=== PATIENT | male | born 1945 | race Caucasian/White ===

== ENCOUNTER → 2016-10-01 | Outpatient (CLI) | payer MEDICARE ==
[2014-06-07 11:15] VITALS: BP 140/66
[~2016-10-01] MED LIST: ALPR1TAB6 PO; IOHEXOL 240 MG/ML 50ML VIAL. PO ONE; IOHEXOL 300 MG/ML 75 ML VIAL IV ONE; METF100010 PO; PIOG30TA41 PO
[2016-10-01 10:53] LABS: CREATININE 0.8 mg/dL (0.7-1.3)
--- NOTE | 2016-10-01 17:41 | RAD ---
CT chest, abdomen and pelvis 10/01/2016 Indication: Hemoptysis and concern for mass. Elevated PSA. Comparison: None. Technique: CT helical acquisition of the chest, abdomen and pelvis obtained according to the standard protocol following uneventful intravenous administration of 75 mL of Omnipaque 300. Coronal and sagittal reformations of the chest, abdomen and pelvis were obtained. PQRS Compliance Statement: One or more of the following individualized dose reduction techniques were utilized for this examination: 1. Automated exposure control 2. Adjustment of the mA and/or kV according to patient size 3. Use of iterative reconstruction technique Chest: Heart size is normal without significant pericardial effusion. Prior median sternotomy and coronary artery revascularization. Dense [place] coronary artery calcifications. There is dilatation of the descending thoracic aorta at the root level measuring 4.4 cm. Scattered mixed atheromatous disease throughout the thoracic aorta. There is mild left hilar lymphadenopathy measuring up to 1.3 cm. No axillary or mediastinal lymphadenopathy. The central airways are patent. There is a 9 mm left lower lobe noncalcified nodule (series 2/image 45). There are patchy reticular and groundglass opacities adjacent to the nodule in the posterior left lower lobe. There is a 4 mm groundglass nodule in the peripheral left lower lobe (series 2/image 42). There is moderate upper lobe predominant centrilobular emphysema. There are additional subcentimeter bilateral noncalcified pulmonary nodules with sales representative electric service right lung nodule in the right lower lobe measuring 3 mm (series 2/image 41). There are small subpleural areas of patchy consolidation in the right lung base, favored to represent scarring. No pleural effusion or pneumothorax. There is diffuse bony demineralization. There is multilevel thoracic spondylosis without destructive osseous lesions. Abdomen and pelvis: Liver, gallbladder, spleen, adrenal glands and kidneys are within normal limits. There is moderate fatty atrophy of the pancreas. Abdominal aorta is normal in caliber with severe, calcified aortoiliac atheromatous disease. Major portal, splenic and visualized upper mesenteric veins are widely patent. Small and large bowel loops are normal in caliber without obstruction and. No abdominal free fluid. There is moderate retained stool throughout the large bowel. No pneumatosis. Evaluation of the pelvis is significantly limited due to artifact from total right hip arthroplasty. There is a moderate amount of stool in the rectal fold. No definite pelvic lymphadenopathy, however evaluation is significantly limited. There is diffuse bony demineralization and prior total right hip arthroplasty. Impression: Chest: 1. Several subcentimeter bilateral pulmonary nodules, largest measuring 9 mm in the left lower lobe, indeterminate. Follow-up CT chest in 3 months is recommended. 2. Patchy peribronchovascular airspace opacities in the medial left lower lobe likely representing aspiration, though infection cannot be excluded. 3. Mild left hilar lymphadenopathy, indeterminate between reactive and srinath metastatic disease. This could also be followed with above finding. 4. Moderate emphysema. Abdomen and pelvis: 1. Limited evaluation of the pelvis due to total right knee arthroplasty. Within these limitations, no suspicious abdominopelvic mass or lymphadenopathy. 2. Moderate prostate enlargement.
== END | disposition home or self-care (01) ==
LOC: CT 10:12
PROVIDERS: ATTEND Internal Medicine
DX: R04.2 Hemoptysis (principal); R97.20 Elevated prostate specific antigen [PSA]; R63.4 Abnormal weight loss; R22.2 Localized swelling, mass and lump, trunk; J43.9 Emphysema, unspecified; N40.0 Benign prostatic hyperplasia without lower urinary tract symptoms
CPT/HCPCS: 36415; 71260; 74177; 82565; 84520; Q9966; Q9967

== ENCOUNTER 2016-10-16 19:20 | Emergency (ER) | payer MEDICARE ==
[~2016-10-16] VITALS: Ht 182.9 cm; Wt 68.0 kg
[~2016-10-16 19:20] MED LIST changes: -IOHEXOL 240 MG/ML 50ML VIAL. PO ONE; -IOHEXOL 300 MG/ML 75 ML VIAL IV ONE
[2016-10-16] MEDS ORDERED: silver sulfADIAZINE 1% CREAM 25GM TUBE. TP ONE (20:00)
[2016-10-16] MEDS ORDERED: DIPHTH,PERTUSS(ACELL),TET TOX 0.5 ML DISP.SYRIN. VAX IM ONE (20:00)
[2016-10-16 20:28] VITALS: BP 104/74
[2016-10-16] MEDS ORDERED: HYDR-971 PO (20:36)
[2016-10-16] MEDS ORDERED: SILV20CR14 TP (20:36)
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
== END 2016-10-16 20:38 | disposition home or self-care (01) ==
LOC: ER 19:20
DX: T20.20XA Burn of second degree of head, face, and neck, unspecified site, initial encounter (principal); T23.202A Burn of second degree of left hand, unspecified site, initial encounter; T23.201A Burn of second degree of right hand, unspecified site, initial encounter; T31.0 Burns involving less than 10% of body surface; H81.09 Meniere's disease, unspecified ear; H91.90 Unspecified hearing loss, unspecified ear; E11.9 Type 2 diabetes mellitus without complications; E78.00 Pure hypercholesterolemia, unspecified; Z95.1 Presence of aortocoronary bypass graft; Z96.659 Presence of unspecified artificial knee joint; X08.8XXA Exposure to other specified smoke, fire and flames, initial encounter; Y93.89 Activity, other specified; Y92.89 Other specified places as the place of occurrence of the external cause; Y99.8 Other external cause status
CPT/HCPCS: 16020; 90471; 90715; 99285-25

== ENCOUNTER 2016-12-16 18:30 | Inpatient (IN) | payer MEDICARE ==
[~2016-12-16] VITALS: Ht 190.5 cm; Wt 69.9 kg
[~2016-12-16 18:30] MED LIST changes: +HYDR-971 PO; +SILV20CR14 TP
[2016-12-16 19:34] LABS: BASO % 0 % (0-3); EOS % 0 % (0-3); HEMATOCRIT 41.2 % (39.0-53.0); HEMOGLOBIN 13.6 g/dL (13.0-17.5); LYMPH # 1.2 x10^3/uL (1.0-4.8); LYMPH % 12 % (24-48); MEAN CORPUSCULAR HEMOGLOBIN 30 pg (25-35); MEAN CORPUSCULAR HGB CONC 33 g/dL (31-37); MEAN CORPUSCULAR VOLUME 90 fL (79-100); MONO % 5 % (0-9); NEUT % 82 % (31-73); PLATELET COUNT 221 x10^3/uL (140-400); RED BLOOD COUNT 4.58 x10^6/uL (4.30-5.70); RED CELL DISTRIBUTION WIDTH 15.3 % (11.5-14.5); WHITE BLOOD COUNT 10.1 x10^3/uL (4.0-11.0)
--- NOTE | 2016-12-16 19:53 | EKG ---
[facility] [address] [place] [address] Test Date: 2016-12-16 Test Time: 18:37:13 Pat Name: DOMENIC BRUNNER Department: Room: Gender: M Logistics Lead: : 1945 Requested By: JEAN TRIVEDI Order Number: [id number] Reading MD: Abeba Palmer Measurements Intervals [place] Rate: 98 P: 56 UT: 156 QRS: -52 QRSD: 122 T: 121 QT: 376 QTc: 482 Interpretive Statements SINUS RHYTHM LEFT ATRIAL ABNORMALITY ABNORMAL LEFT AXIS DEVIATION LEFT ANTERIOR FASCICULAR BLOCK INCOMPLETE LBBB Electronically Signed On 12-20-2016 15:35:06 CDT by Abeba Palmer
[2016-12-16] MEDS ORDERED: HYDROcodone/APAP 5/325MG 1 TAB TABLET PO ONE (20:00)
[2016-12-16 20:03] LABS: CREATININE 1.2 mg/dL (0.7-1.3); GFR 59.5; POTASSIUM 3.6 mmol/L (3.5-5.1)
[2016-12-16 20:14] LABS: ALBUMIN 3.3 g/dL (3.4-5.0); ALBUMIN/GLOBULIN RATIO 0.8 (1.0-1.7); TOTAL BILIRUBIN 0.4 mg/dL (0.2-1.0); TOTAL PROTEIN 7.7 g/dL (6.4-8.2)
[2016-12-16] MEDS ORDERED: ASPIRIN CHEWABLE 81 MG TABLET. PO ONE (20:30)
[2016-12-16 20:42] LABS: CKMB MASS 102.1 ng/mL (0.0-3.6)
[2016-12-16] MEDS: NITROGLYCERIN SUBLINGUAL 0.4 MG BOTTLE OF 25. SL PRN ×3 (20:55→21:18)
[2016-12-16] MEDS ORDERED: NITROGLYCERIN PREMIX 250 ML IV ONE (21:00)
[2016-12-16] MEDS ORDERED: HEPARIN for IV BOLUS 10,000 UNIT/10 ML VIAL. IV PRN (21:00)
--- NOTE | 2016-12-16 21:10 | PHYS DOC ---
Past Medical History Past Medical History: Diabetes-Type II, High Cholesterol, Other Additional Past Medical Histor: MACULAR DEGEN. Past Surgical History: Coronary Bypass Surgery, Knee Replacement, Other Additional Past Surgical Histo: R HIP AND FEMUR Alcohol Use: Occasionally Drug Use: None Adult General Chief Complaint Chief Complaint: CHEST PAIN HPI HPI Patient is a 71 year old male with remote history of CABG in 2002 and chronic stable daily chest pain who presents with increased waxing and waning chest pain for the past several days with continuous substernal chest pain the past 3 days. Chest pain is described as pressure and stabbing is not differentiated by rest or exertion. She had with nausea and increased shortness of breath. Patient denies vomiting. Denies increased leg pain and swelling. Denies history of DVT or PE. Patient is not on daily aspirin or anticoagulation therapy. He is a current smoker. 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 Patient has not kept any of his cardiac appointments in the past 2 years. Patient also complains of chronic back pain, having 50 pound weight loss in the past 12 months. No fever, chills, abdominal pain, hematemesis or bloody stools. No other acute symptoms or complaints. Review of Systems Review of Systems Review of symptoms as per history of present illness. All other review symptoms are negative. Current Medications Current Medications Current Medications Medications (Trade) Dose Ordered Sig/Ramy Start Time Stop Time Status Last Admin Dose Admin Acetaminophen/ Hydrocodone Bitart (Lortab 5/325) 1 tab 1X ONCE 12/16/16 20:00 12/16/16 20:01 DC 12/16/16 20:01 1 TAB Aspirin (Children'S Aspirin) 324 mg 1X ONCE 12/16/16 20:30 12/16/16 20:31 DC 12/16/16 20:53 324 MG Fentanyl Citrate (Fentanyl 2ml Vial) 50 mcg 1X ONCE 12/16/16 21:30 12/16/16 21:31 DC 12/16/16 21:44 50 MCG Furosemide (Lasix) 40 mg 1X ONCE 12/16/16 21:30 12/16/16 21:31 DC 12/16/16 21:46 40 MG Heparin Sodium (Porcine) (Heparin Sodium) 4,000 unit 1X ONCE 12/16/16 22:00 12/16/16 22:01 DC 12/16/16 21:53 4,000 UNIT Heparin Sodium/ Dextrose 500 ml @ 0 mls/hr CONT PRN 12/16/16 21:00 12/16/16 21:58 16.9 MLS/HR Info (Anti-Coagulation Monitoring By Pharmacy) 1 each PRN DAILY PRN 12/16/16 21:00 Nitroglycerin (Nitrostat) 0.4 mg PRN Q5MIN PRN 12/16/16 20:30 12/16/16 21:18 0.4 MG Nitroglycerin/ Dextrose 250 ml @ 0 mls/hr 1X ONCE 12/16/16 21:00 12/16/16 21:02 DC 12/16/16 21:25 1.5 MLS/HR Ondansetron HCl (Zofran) 4 mg PRN Q8HRS PRN 12/16/16 22:30 12/17/16 22:29 Sodium Chloride 1,000 ml @ 75 mls/hr [id number] 12/16/16 23:00 12/17/16 22:59 Allergies Allergies Allergies Coded Allergies Type Severity Reaction Last Updated Verified Nrovjny-Qst-Ofw Reductase Inhibitor Allergy Intermediate 06/07/14 Yes Physical Exam Physical Exam Constitutional: Well developed, Well Nourished, no acute distress, non-toxic appearance. [] HENT: Normocephalic, atraumatic, bilateral external ears normal, oropharynx moist, no oral exudates, nose normal. [] Eyes: PERRLA, EOMI, conjunctiva normal, no discharge. [] Neck: Normal range of motion, no tenderness, supple, no stridor. [] Cardiovascular:Heart rate regular rhythm, no murmur, negative Homans sign 1+. [] Lungs & Thorax: Respirations nonlabored, coarse rhonchi bilaterally.[] Abdomen: Bowel sounds normal, soft, no tenderness, no masses, no pulsatile masses. [] Skin: Warm, dry, no erythema, no rash. [] Back: No tenderness. [] Extremities: No tenderness, no cyanosis, no edema. [] Neurologic: Alert and oriented X 3, normal motor function, normal sensory function, no focal deficits noted. [] Psychologic: Affect normal, judgement normal, mood normal. [] Current Patient Data Vital Signs Vital Signs Date Time Temp Pulse Resp B/P (MAP) Pulse Ox O2 Delivery O2 Flow Rate FiO2 12/16/16 21:44 16 96 Room Air 12/16/16 21:18 94 105/62 12/16/16 18:35 97.7 97.7 Lab Values Laboratory Tests Test 12/16/16 18:49 White Blood Count 10.1 x10^3/uL (4.0-11.0) Red Blood Count 4.58 x10^6/uL (4.30-5.70) Hemoglobin 13.6 g/dL (13.0-17.5) Hematocrit 41.2 % (39.0-53.0) Mean Corpuscular Volume 90 fL (79-100) Mean Corpuscular Hemoglobin 30 pg (25-35) Mean Corpuscular Hemoglobin Concent 33 g/dL (31-37) Red Cell Distribution Width 15.3 % (11.5-14.5) H Platelet Count 221 x10^3/uL (140-400) Neutrophils (%) (Auto) 82 % (31-73) H Lymphocytes (%) (Auto) 12 % (24-48) L Monocytes (%) (Auto) 5 % (0-9) Eosinophils (%) (Auto) 0 % (0-3) Basophils (%) (Auto) 0 % (0-3) Neutrophils # (Auto) 8.3 x10^3uL (1.8-7.7) H Lymphocytes # (Auto) 1.2 x10^3/uL (1.0-4.8) Monocytes # (Auto) 0.5 x10^3/uL (0.0-1.1) Eosinophils # (Auto) 0.0 x10^3/uL (0.0-0.7) Basophils # (Auto) 0.0 x10^3/uL (0.0-0.2) Prothrombin Time 12.9 SEC (11.7-14.0) Prothrombin Time INR 1.0 (0.8-1.1) PTT 30 SEC (24-38) Sodium Level 138 mmol/L (136-145) Potassium Level 3.6 mmol/L (3.5-5.1) Chloride Level 101 mmol/L (98-107) Carbon Dioxide Level 30 mmol/L (21-32) Anion Gap 7 (6-14) Blood Urea Nitrogen 19 mg/dL (8-26) Creatinine 1.2 mg/dL (0.7-1.3) Estimated GFR (Cockcroft-Gault) 59.5 BUN/Creatinine Ratio 16 (6-20) Glucose Level 328 mg/dL (70-99) H Calcium Level 9.0 mg/dL (8.5-10.1) Total Bilirubin 0.4 mg/dL (0.2-1.0) Aspartate Amino Transferase (AST) 96 U/L (15-37) H Alanine Aminotransferase (ALT) 27 U/L (16-63) Alkaline Phosphatase 121 U/L (46-116) H Creatine Kinase 899 U/L (39-308) H Creatine Kinase MB (Mass) 102.1 ng/mL (0.0-3.6) H Creatine Kinase MB Relative Index 11.4 % (0-4) H Troponin I Quantitative 9.612 ng/mL (0.000-0.055) EE-Qon-B-Type Natriuretic Peptide 1587 pg/mL (0-124) H Total Protein 7.7 g/dL (6.4-8.2) Albumin 3.3 g/dL (3.4-5.0) L Albumin/Globulin Ratio 0.8 (1.0-1.7) L Laboratory Tests 12/16/16 18:49 Laboratory Tests 12/16/16 18:49 EKG EKG [EKG: Sinus rhythm, rate 98, left anterior fascicular block, LVH, Q waves in septal leads, ST depression leads V4 through V6 with possible, ST elevation in leads V1 through V3 without cervical change. Possible repolarization abnormality. EKG #2: Normal sinus rhythm, rate 94, left anterior fascicular block, LVH, T depression/T-wave inversions in leads V3 through V6. Q waves in septal leads. No acute ST elevation with reciprocal changes. Radiology/Procedures Radiology/Procedures [Chest x-ray: Emphysema. Lungs with increased interstitial markings on preliminary ED read.] Course & Med Decision Making Course & Med Decision Making Pertinent Labs and Imaging studies reviewed. (See chart for details) [Patient with atypical chest pain reproducible on exam. CK/troponin elevated. No decelerative ST elevation changes on standing or repeat EKG indicative of ST elevation MS. Patient initiated on heparin, nitro drip and given Lasix. Significant improvement on nitroglycerin. Patient resting comfortably. Case reviewed in detail with Dr. Ashby and Dr. Moreno. Recommendations per Dr. Stein's are for ICU admission, serial troponin, and medical management. Dr. Moreno agrees to admit and recommends pulmonology consult.] Justin Disclaimer Dragon Disclaimer This electronic medical record was generated, in whole or in part, using a voice recognition dictation system. Departure Departure Impression: Primary Impression: Non-STEMI (non-ST elevated myocardial infarction) Disposition: 09 ADMITTED INPATIENT Condition: JEAN YANEZ DO Dec 16, 2016 21:10
[2016-12-16 21:21] LABS: PROTHROMBIN TIME PATIENT 12.9 SEC (11.7-14.0)
[2016-12-16] MEDS ORDERED: FUROSEMIDE 40 MG/4 ML VIAL. IVP ONE (21:30)
[2016-12-16] MEDS ORDERED: fentaNYL PF VIAL 100 MCG/2 ML VIAL IV ONE (21:30)
[2016-12-16] MEDS ORDERED: ONDANSETRON PF 4 MG/2 ML VIAL. IV ONE (21:30)
[2016-12-16] MEDS: HEPARIN 25,000UTS/500ML PREMIX 500 ML IV PRN (21:58)
[2016-12-16] MEDS ORDERED: HEPARIN for IV BOLUS 10,000 UNIT/10 ML VIAL. IV ONE (22:00)
[2016-12-16] MEDS ORDERED: ONDANSETRON PF 4 MG/2 ML VIAL. IV PRN (22:30)
[2016-12-16] MEDS ORDERED: DEXTROSE 50% 25 GM / 50ML DISP.SYRIN. IV PRN (22:45)
[2016-12-16] MEDS ORDERED: IV DEXTROSE 5 %-0.45 % NACL 1,000 ML IV ONE (22:45)
[2016-12-16] MEDS ORDERED: IV NORMAL SALINE 1000ML BAG 1,000 ML IV SCH (23:00)
[2016-12-16 23:20] VITALS: BP 96/56
[2016-12-16 23:45] VITALS: BP 95/63
[2016-12-17] VITALS (33 sets, daily range): BP systolic 55–108; BP diastolic 22–69
[2016-12-17] MEDS: ANTI-COAG MONITOR BY PHARMACY. MC PRN ×2 (00:46→09:47)
[2016-12-17] MEDS: ALPRAZolam 0.25 MG TABLET PO PRN ×2 (01:14→19:45)
[2016-12-17] MEDS: MORPHINE SULFATE 2 MG/ML DISP.SYRIN. IV PRN ×2 (01:15→09:26)
[2016-12-17 04:52] LABS: BASO % 0 % (0-3); EOS % 1 % (0-3); HEMOGLOBIN 12.7 g/dL (13.0-17.5); LYMPH # 1.5 x10^3/uL (1.0-4.8); LYMPH % 18 % (24-48); MEAN CORPUSCULAR HEMOGLOBIN 30 pg (25-35); MEAN CORPUSCULAR HGB CONC 33 g/dL (31-37); MEAN CORPUSCULAR VOLUME 89 fL (79-100); MONO % 6 % (0-9); NEUT % 74 % (31-73); PLATELET COUNT 198 x10^3/uL (140-400); RED BLOOD COUNT 4.26 x10^6/uL (4.30-5.70); RED CELL DISTRIBUTION WIDTH 14.9 % (11.5-14.5); WHITE BLOOD COUNT 8.1 x10^3/uL (4.0-11.0)
[2016-12-17 05:08] LABS: CALCIUM 8.7 mg/dL (8.5-10.1); CREATININE 1.2 mg/dL (0.7-1.3); GFR 59.5; POTASSIUM 4.3 mmol/L (3.5-5.1)
[2016-12-17] MEDS: IV NORMAL SALINE 1000ML BAG 1,000 ML IV SCH ×2 (06:19→23:38)
[2016-12-17] MEDS ORDERED: INSULIN ASPART 300 UNITS/3 ML INSULN.PEN SQ ONE (06:30)
--- NOTE | 2016-12-17 06:48 | EKG ---
[facility] [address] [place] [address] Test Date: 2016-12-16 Test Time: 21:21:04 Pat Name: DOMENIC BRUNNER Department: Room: 109 1 Gender: M Pilot Supervisor: : 1945 Requested By: JEAN TRIVEDI Order Number: [id number] Reading MD: Abeba Palmer Measurements Intervals [place] Rate: 94 P: 67 [place]: 162 QRS: -59 QRSD: 120 T: -90 QT: 392 QTc: 496 Interpretive Statements SINUS RHYTHM ABNORMAL LEFT AXIS DEVIATION LEFT ANTERIOR FASCICULAR BLOCK QRS(T) CONTOUR ABNORMALITY CONSISTENT WITH ANTEROSEPTAL INFARCT AGE UNDETERMINED T ABNORMALITY IN ANTERIOR LEADS Electronically Signed On 12-20-2016 15:36:32 CDT by Abeba Palmer
[2016-12-17] MEDS ORDERED: INSULIN ASPART 300 UNITS/3 ML INSULN.PEN SQ SCH (08:00)
--- NOTE | 2016-12-17 08:17 | RAD ---
Portable chest, 12/16/2016: History: Shortness of breath Comparison is made to a study from 06/07/2014. There as been a previous median sternotomy. The heart size is normal. There are mildly prominent pulmonary markings. The CT study of 10/01/2016 demonstrated emphysema with parenchymal scarring. No pulmonary consolidation is seen. There is no evidence of pleural fluid. IMPRESSION: Emphysema with parenchymal scarring.
--- NOTE | 2016-12-17 09:44 | PDOC ---
Provider Note Provider Note history and physical dictated # [id number] ROJAS ALICEA MD Dec 17, 2016 09:44
[2016-12-17] MEDS ORDERED: FLU VACC QS2017-18 (36MOS+)/PF 0.5 ML SYRINGE. VAX IM ONE (10:00)
--- NOTE | 2016-12-17 11:08 | HP ---
ADMIT DATE: 12/17/2016 LOCATION: Intensive Care Unit, Room 109. HISTORY OF PRESENT ILLNESS: The patient is a 71-year-old white male with a history of coronary artery disease who underwent a 3-vessel coronary bypass graft surgery in 2004 and has chronic obstructive pulmonary disease, hyperlipidemia, diabetes mellitus type 2 with microalbuminuria as well as osteoarthritis and a previous right total knee arthroplasty, was admitted to [facility]'s Intensive Care Unit through the Emergency Room 12/17/2016 with a 1-week history of chest pain and shortness of breath. He had retrosternal chest pain radiating to the neck associated with shortness of breath occurring intermittently for a week and then on a regular basis and consistently for the last few days. He sought help at the [facility] Emergency Room where his troponin level was quite high and his cardiac enzymes were elevated and his EKG did not show any Q-waves, so he was diagnosed with a non-ST segment elevated myocardial infarction and was admitted to the Intensive Care Unit at [facility] and started on IV heparin and IV nitroglycerin, and will be having a cardiac catheterization later this morning. He says his chest pain last night was 10/10 prompting him to go to the Emergency Room and now it is very mild on IV nitroglycerin drip. Systolic blood pressure has been running low around 76, but he is coherent and joking around in the Intensive Care Unit with me. He is therefore admitted for further evaluation and treatment of his acute non-ST segment elevated myocardial infarction. ALLERGIES AND INTOLERANCES: ATORVASTATIN, which caused myalgias. MEDICATIONS PRIOR TO ADMISSION: Aspirin 81 mg every day. He was supposed to take Levemir 12 units at bedtime and NovoLog 4 units before meals t.i.d., but states he stopped his insulin for unclear reasons. He is supposed to be taking metformin 1000 mg b.i.d., Actos 45 mg every day, pravastatin 40 mg every day and losartan 25 mg every day. It is unclear how compliant he actually has been prior to his hospitalization. PAST MEDICAL HISTORY: Significant for a 3-vessel coronary bypass graft surgery in 2004, right total knee arthroplasty, open reduction and internal fixation for right hip and femur fracture in 2013. He has chronic obstructive pulmonary disease, diabetes mellitus type 2 with microalbuminuria, poorly controlled with a hemoglobin A1c of 9.5 in July 2016. He also has hyperlipidemia, but is able to tolerate pravastatin, and osteoarthritis. He had a single episode of hemoptysis in July 2016 and a 52-pound weight loss in 2 years, about 21 pounds in the last year. He underwent a CAT scan of the chest, abdomen and pelvis in September 2016 without IV contrast and was noted to have bilateral small lung nodules and very slight left hilar adenopathy. The radiologist recommended repeating a CAT scan of the chest in 3 months, which would have been around now. He also has benign prostatic hypertrophy. He had PSA of 9.1 and was referred to urologist, but apparently did not see one. 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 CAT scan of the abdomen and pelvis showed benign prostatic hypertrophy, but otherwise was unremarkable except for what was stated regarding the CAT scan of the chest. SOCIAL HISTORY: Smokes about half a pack of cigarettes a day, quit smoking for about a while and resumed a year ago. He drinks alcohol occasionally. He is single. Retired. FAMILY HISTORY: Noncontributory. REVIEW OF SYSTEMS: GENERAL: There has been no fever, chills or sweats in the last 3 days. CARDIOVASCULAR: He had the chest pain. PULMONARY: Shortness of breath. GASTROINTESTINAL: No constipation. SKIN: No rashes. NEUROLOGIC: No focal weakness. ENDOCRINE: He has diabetes mellitus. Rest of systems reviewed is negative except as stated in history of present illness. PHYSICAL EXAMINATION: VITAL SIGNS: Temperature is 98.2 degrees, pulse 79, respiratory rate 21, blood pressure was 76 systolic. Last one recorded in the chart is 86/58, however. Oxygen saturation 94% room air. HEENT: Eyes: Gaze is conjugate. Extraocular muscles are intact. Mouth: Tongue is midline. Wears dentures. NECK: No cervical lymphadenopathy or carotid bruits. HEART: Reveals an S1, S2. There is no S3 or murmur. LUNGS: Clear with decreased breath sounds bilaterally. ABDOMEN: Soft, nontender. EXTREMITIES: Lower extremities without edema. On examination of his left foot, he has got 2+ pedal pulses. I cannot appreciate any pulses in his right foot, but the foot is warm. NEUROLOGIC: Revealed no focal weakness of the upper or lower extremities or facial asymmetry. He is able to dorsi and plantar flex his feet, bend his knees. He has got good hand brush filler hand bilaterally. SKIN: No rashes. LABORATORY DATA: On review of his labs, his white count 8.1, hemoglobin 12.7, platelet count 198,000, 74 polys and 18 lymphocytes. INR was 1.0 with a PTT of 30. His sodium is 136, potassium 4.3, chloride 101, total CO2 is 30, BUN 22, creatinine 1.2. Fingerstick blood sugar at midnight was 317. Troponin level was 9.6, is 48.5 this morning. CPK increased at 899, MB was increased at 102, MB index increased at 11.4. His albumin was 3.3. Liver function tests showed actually his SGOT was 96, SGPT was normal, alkaline phosphatase of 121, total bilirubin 0.4, calcium 9.0. IMAGING: His chest x-ray showed COPD with scarring of the lungs. His EKG showed no Q-waves. There were no acute changes in terms of ST segment elevation or Q-waves noted on the EKG. EKG showed normal sinus rhythm, left atrial abnormality and left axis deviation, and left anterior hemiblock, delayed precordial R-wave progression. ASSESSMENT: 1. Acute non-ST segment elevated myocardial infarction. 2. Coronary artery disease with previous 3-vessel coronary bypass graft surgery in 2004. 3. Diabetes mellitus type 2, uncontrolled with microalbuminuria. 4. Hyperlipidemia. 5. Chronic obstructive pulmonary disease. 6. Peripheral arterial disease. 7. Bilateral small lung nodules. PLAN: At this time is to consult Dr. Stein. We will continue with IV heparin and the IV nitroglycerin. Continue with his aspirin and check a lipid profile tomorrow. We will consult Dr. Arizmendi of Pulmonary. Will have a cardiac catheterization this morning. We will hold his metformin because of the iodine with the cardiac catheterization and just put him on a NovoLog insulin sliding scale and Levemir insulin. Repeat his labs again tomorrow. We have ordered an echocardiogram. ROJAS ALICEA MD DR: POPPY/nela JOB#: [id number] / [id number]
[2016-12-17] MEDS ORDERED: MIDAZOLAM HCL/PF 2 MG/2 ML VIAL. IV ONE ×2 (11:15→14:15)
[2016-12-17] MEDS: fentaNYL PF VIAL 100 MCG/2 ML VIAL IV PRN ×4 (11:23→20:56)
[2016-12-17] MEDS: ASPIRIN 325 MG TABLET PO SCH (11:23)
[2016-12-17] MEDS: INSULIN ASPART 300 UNITS/3 ML INSULN.PEN SQ SCH ×2 (12:00→17:32)
[2016-12-17] MEDS ORDERED: IOHEXOL 300 MG/ML 100ML VIAL. ONE ×2 (13:25→13:55)
[2016-12-17] MEDS ORDERED: LIDOCAINE 2% 20 ML VIAL. ONE (13:25)
--- NOTE | 2016-12-17 13:45 | PDOC ---
MODERATE SEDATION ASSESSMENT RISKS/ALTERNATIVES Risks/Alternatives Risks and alternatives of this type of sedation and procedure discussed with: RISK/ALTERNATIVES: Patient H & P ON CHART H & P H & P on chart and reviewed for co-morbid conditions and appropriate labs. H&P ON CHART: Yes STATUS PREG STATUS ASSESSED: Yes MEDS/ALLERGIES REVIEWED Meds/Allergies Reviewed Medications and Allergies including time and route of recently administered narcotics and sedatives. MEDS/ALLERGIES REVIEWED: Yes ASA RATING ASA RATING: II AIRWAY ASSESSMENT Airway Assessment Airway patency, oral function limitations, presence of caps, crowns, dentures, partials, and ability to extend neck assessed. AIRWAY ASSESSMENT: Yes MALLAMPATI SCORE MALLAMPATI SCORE: II PRE-SEDATION ASSESSMENT PRE-SEDATION ASSESSMENT: Yes JANINA PATEL MD Dec 17, 2016 13:45
--- NOTE | 2016-12-17 13:55 | PDOC2 ---
CONSULT Date of Consult Date of Consult DATE: 12/17/16 TIME: 13:46 Reason for Consult Reason for Consult: Chest pain Referring Physician Referring Physician: Dr Moreno Identification/Chief Complaint Chief Complaint Chest pain Problems: History of Present Illness Reason for Visit: Pt is a noncompliant 71 y o gentleman with a Hx of CAD, COPD, DM that had CABGS in 2004. He is a smoker. I have not seen him in years. He comes in after a week of chest pains with a very elevated troponin and on and off chest pains. No STEMI by EKG An echocardiogram was done that showed an LV EF of 20%. Past Medical History Cardiovascular: CAD, HTN Pulmonary: No pertinent hx, Bronchitis, COPD GI: GERD Renal/: No pertinent hx Past Surgical History Past Surgical History: Hysterectomy Family History Family History: Other Current Problem List Problem List Problems Medical Problems: (1) Non-STEMI (non-ST elevated myocardial infarction) Status: Acute Current Medications Current Medications Current Medications Acetaminophen/ Hydrocodone Bitart (Lortab 5/325) 1 tab 1X ONCE PO Last administered on 12/16/16 20:01; Start 12/16/16 at 20:00; Stop 12/16/16 at 20 :01; Status DC Aspirin (Children'S Aspirin) 324 mg 1X ONCE PO Last administered on 20:53; Start 12/16/16 at 20:30; Stop 12/16/16 at 20:31; Status DC Nitroglycerin (Nitrostat) 0.4 mg PRN Q5MIN PRN SL CHEST PAIN Last administered on 12/16/16 21:18; Start 12/16/16 at 20:30 Heparin Sodium/ Dextrose 500 ml @ 0 mls/hr CONT PRN IV SEE I/O RECORD Last administered on 12/16/16 21:58; Start 12/16/16 at 21:00 Heparin Sodium (Porcine) (Heparin Sodium) 1,750 unit PRN Q6HRS PRN IV FOR UFH LEVEL LESS THAN 0.2; Start 12/16/16 at 21:00 Info (Anti-Coagulation Monitoring By Pharmacy) 1 each PRN DAILY PRN MC SEE COMMENTS Last administered on 12/17/16 09:47; Start 12/16/16 at 21:00 Fentanyl Citrate (Fentanyl 2ml Vial) 50 mcg 1X ONCE IV Last administered on 21:44; Start 12/16/16 at 21:30; Stop 12/16/16 at 21:31; Status DC Ondansetron HCl (Zofran) 4 mg 1X ONCE IV Last administered on 12/16/16 21:41 ; Start 12/16/16 at 21:30; Stop 12/16/16 at 21:31; Status DC Furosemide (Lasix) 40 mg 1X ONCE IVP Last administered on 12/16/16 21:46; Start 12/16/16 at 21:30; Stop 12/16/16 at 21:31; Status DC Nitroglycerin/ Dextrose 250 ml @ 0 mls/hr 1X ONCE IV Last administered on 21:25; Start 12/16/16 at 21:00; Stop 12/16/16 at 21:02; Status DC Heparin Sodium (Porcine) (Heparin Sodium) 4,000 unit 1X ONCE IV Last administered on 12/16/16 21:53; Start 12/16/16 at 22:00; Stop 12/16/16 at 22 :01; Status DC Ondansetron HCl (Zofran) 4 mg PRN Q8HRS PRN IV NAUSEA/VOMITING; Start at 22:30; Stop 12/17/16 at 22:29 Sodium Chloride 1,000 ml @ 75 mls/hr [id number] IV ; Start 12/16/16 at 23:00; Stop 12/16/16 at 23:00; Status DC Insulin Aspart (NovoLOG) 0-5 UNITS TIDWMEALS SQ ; Start 12/17/16 at 08:00; Stop 12/17/16 at 09:47; Status DC Dextrose (Dextrose 50%-Water Syringe) 12.5 gm PRN Q15MIN PRN IV SEE COMMENTS; Start 12/16/16 at 22:45 Dextrose/Sodium Chloride 1,000 ml @ 75 mls/hr 1X ONCE IV Last administered on 12/17/16 00:19; Start 12/16/16 at 22:45; Stop 12/17/16 at 12:04; Status DC Alprazolam (Xanax) 0.25 mg PRN Q6HRS PRN PO ANXIETY / AGITATION Last administered on 12/17/16 01:14; Start 12/17/16 at 01:00 Morphine Sulfate 3 mg PRN Q2HR PRN IV SEVERE PAIN Last administered on 09:26; Start 12/17/16 at 01:00; Stop 12/17/16 at 09:47; Status DC Sodium Chloride 1,000 ml @ 40 mls/hr Q24H IV Last administered on 12/17/16 06:19; Start 12/17/16 at 06:30 Insulin Aspart (NovoLOG) 4 units 1X ONCE SQ Last administered on 12/17/16 06 :20; Start 12/17/16 at 06:30; Stop 12/17/16 at 06:31; Status DC Insulin Detemir (Levemir) 16 units HS SQ ; Start 12/17/16 at 21:00 Influenza Virus Vaccine Quadrival (Fluarix Quad [id number] Syringe) 0.5 ml ONCE ONCE VAX IM ; Start 12/17/16 at 10:00; Stop 12/17/16 at 10:01; Status DC Insulin Aspart (NovoLOG) 0-5 UNITS TIDWMEALS SQ ; Start 12/17/16 at 12:00 Aspirin (Kwabena Aspirin) 325 mg DAILYWBKFT PO Last administered on 12/17/16 11 :23; Start 12/17/16 at 08:00 Midazolam HCl (Versed) 2 mg 1X ONCE IV Last administered on 12/17/16 11:23; Start 12/17/16 at 11:15; Stop 12/17/16 at 11:17; Status DC Fentanyl Citrate (Fentanyl 2ml Vial) 50 mcg PRN Q2HR PRN IV PAIN Last administered on 12/17/16 11:23; Start 12/17/16 at 11:15 Heparin Sodium/ Sodium Chloride 500 ml @ As Directed STK-MED ONCE .ROUTE ; Start 12/17/16 at 13:25; Stop 12/17/16 at 13:26; Status DC Lidocaine HCl 20 ml STK-MED ONCE .ROUTE ; Start 12/17/16 at 13:25; Stop at 13:26; Status DC Iohexol (Omnipaque 300 Mg/ml) 100 ml STK-MED ONCE .ROUTE ; Start 12/17/16 at 13 :25; Stop 12/17/16 at 13:26; Status DC Active Scripts Active Reported Metformin Hcl Er (Metformin Hcl) 1,000 Mg Tab.er.24 1,000 Mg PO BID Actos (Pioglitazone Hcl) 30 Mg Tablet 30 Mg PO DAILYWBKFT Allergies Allergies: Coded Allergies: [id number] Reductase Inhibitor (Verified Allergy, Intermediate, ) Physical Exam General: Alert, Oriented X3 HEENT: PERRLA Lungs: Clear to auscultation Heart: Regular rate, Normal S1, Normal S2 Abdomen: Normal bowel sounds, Soft Extremities: No edema Vitals VITALS Vital Signs Date Time Temp Pulse Resp B/P (MAP) Pulse Ox O2 Delivery O2 Flow Rate FiO2 12/17/16 12:00 Room Air 12/17/16 12:00 97.7 81 16 87/51 (63) 94 97.7 12/17/16 09:00 2.0 Labs Labs Laboratory Tests Test 12/16/16 18:49 12/17/16 00:23 12/17/16 04:16 12/17/16 10:48 White Blood Count 10.1 x10^3/uL (4.0-11.0) 8.1 x10^3/uL (4.0-11.0) Red Blood Count 4.58 x10^6/uL (4.30-5.70) 4.26 x10^6/uL (4.30-5.70) Hemoglobin 13.6 g/dL (13.0-17.5) 12.7 g/dL (13.0-17.5) Hematocrit 41.2 % (39.0-53.0) 38.0 % (39.0-53.0) Mean Corpuscular Volume 90 fL (79-100) 89 fL (79-100) Mean Corpuscular Hemoglobin 30 pg (25-35) 30 pg (25-35) Mean Corpuscular Hemoglobin Concent 33 g/dL (31-37) 33 g/dL (31-37) Red Cell Distribution Width 15.3 % (11.5-14.5) 14.9 % (11.5-14.5) Platelet Count 221 x10^3/uL (140-400) 198 x10^3/uL (140-400) Neutrophils (%) (Auto) 82 % (31-73) 74 % (31-73) Lymphocytes (%) (Auto) 12 % (24-48) 18 % (24-48) Monocytes (%) (Auto) 5 % (0-9) 6 % (0-9) Eosinophils (%) (Auto) 0 % (0-3) 1 % (0-3) Basophils (%) (Auto) 0 % (0-3) 0 % (0-3) Neutrophils # (Auto) 8.3 x10^3uL (1.8-7.7) 6.1 x10^3uL (1.8-7.7) Lymphocytes # (Auto) 1.2 x10^3/uL (1.0-4.8) 1.5 x10^3/uL (1.0-4.8) Monocytes # (Auto) 0.5 x10^3/uL (0.0-1.1) 0.5 x10^3/uL (0.0-1.1) Eosinophils # (Auto) 0.0 x10^3/uL (0.0-0.7) 0.1 x10^3/uL (0.0-0.7) Basophils # (Auto) 0.0 x10^3/uL (0.0-0.2) 0.0 x10^3/uL (0.0-0.2) Prothrombin Time 12.9 SEC (11.7-14.0) Prothromb Time International Ratio 1.0 (0.8-1.1) Activated Partial Thromboplast Time 30 SEC (24-38) Sodium Level 138 mmol/L (136-145) 136 mmol/L (136-145) Potassium Level 3.6 mmol/L (3.5-5.1) 4.3 mmol/L (3.5-5.1) Chloride Level 101 mmol/L (98-107) 101 mmol/L (98-107) Carbon Dioxide Level 30 mmol/L (21-32) 30 mmol/L (21-32) Anion Gap 7 (6-14) 5 (6-14) Blood Urea Nitrogen 19 mg/dL (8-26) 22 mg/dL (8-26) Creatinine 1.2 mg/dL (0.7-1.3) 1.2 mg/dL (0.7-1.3) Estimated GFR (Cockcroft-Gault) 59.5 59.5 BUN/Creatinine Ratio 16 (6-20) Glucose Level 328 mg/dL (70-99) 401 mg/dL (70-99) Calcium Level 9.0 mg/dL (8.5-10.1) 8.7 mg/dL (8.5-10.1) Total Bilirubin 0.4 mg/dL (0.2-1.0) Aspartate Amino Transf (AST/SGOT) 96 U/L (15-37) Alanine Aminotransferase (ALT/SGPT) 27 U/L (16-63) Alkaline Phosphatase 121 U/L (46-116) Creatine Kinase 899 U/L (39-308) Creatine Kinase MB (Mass) 102.1 ng/mL (0.0-3.6) Creatine Kinase MB Relative Index 11.4 % (0-4) Troponin I Quantitative 9.612 ng/mL (0.000-0.055) 48.531 ng/mL (0.000-0.055) 78.435 ng/mL (0.000-0.055) AV-Gqe-X-Type Natriuretic Peptide 1587 pg/mL (0-124) Total Protein 7.7 g/dL (6.4-8.2) Albumin 3.3 g/dL (3.4-5.0) Albumin/Globulin Ratio 0.8 (1.0-1.7) Glucose (Fingerstick) 317 mg/dL (70-99) Heparin Anti-Xa Act, Unfractionated < 0.10 IU/mL (0.30-0.70) Test 12/17/16 11:42 Glucose (Fingerstick) 137 mg/dL (70-99) Laboratory Tests Test 12/16/16 18:49 12/17/16 00:23 12/17/16 04:16 12/17/16 10:48 White Blood Count 10.1 x10^3/uL (4.0-11.0) 8.1 x10^3/uL (4.0-11.0) Red Blood Count 4.58 x10^6/uL (4.30-5.70) 4.26 x10^6/uL (4.30-5.70) Hemoglobin 13.6 g/dL (13.0-17.5) 12.7 g/dL (13.0-17.5) Hematocrit 41.2 % (39.0-53.0) 38.0 % (39.0-53.0) Mean Corpuscular Volume 90 fL (79-100) 89 fL (79-100) Mean Corpuscular Hemoglobin 30 pg (25-35) 30 pg (25-35) Mean Corpuscular Hemoglobin Concent 33 g/dL (31-37) 33 g/dL (31-37) Red Cell Distribution Width 15.3 % (11.5-14.5) 14.9 % (11.5-14.5) Platelet Count 221 x10^3/uL (140-400) 198 x10^3/uL (140-400) Neutrophils (%) (Auto) 82 % (31-73) 74 % (31-73) Lymphocytes (%) (Auto) 12 % (24-48) 18 % (24-48) Monocytes (%) (Auto) 5 % (0-9) 6 % (0-9) Eosinophils (%) (Auto) 0 % (0-3) 1 % (0-3) Basophils (%) (Auto) 0 % (0-3) 0 % (0-3) Neutrophils # (Auto) 8.3 x10^3uL (1.8-7.7) 6.1 x10^3uL (1.8-7.7) Lymphocytes # (Auto) 1.2 x10^3/uL (1.0-4.8) 1.5 x10^3/uL (1.0-4.8) Monocytes # (Auto) 0.5 x10^3/uL (0.0-1.1) 0.5 x10^3/uL (0.0-1.1) Eosinophils # (Auto) 0.0 x10^3/uL (0.0-0.7) 0.1 x10^3/uL (0.0-0.7) Basophils # (Auto) 0.0 x10^3/uL (0.0-0.2) 0.0 x10^3/uL (0.0-0.2) Prothrombin Time 12.9 SEC (11.7-14.0) Prothromb Time International Ratio 1.0 (0.8-1.1) Activated Partial Thromboplast Time 30 SEC (24-38) Sodium Level 138 mmol/L (136-145) 136 mmol/L (136-145) Potassium Level 3.6 mmol/L (3.5-5.1) 4.3 mmol/L (3.5-5.1) Chloride Level 101 mmol/L (98-107) 101 mmol/L (98-107) Carbon Dioxide Level 30 mmol/L (21-32) 30 mmol/L (21-32) Anion Gap 7 (6-14) 5 (6-14) Blood Urea Nitrogen 19 mg/dL (8-26) 22 mg/dL (8-26) Creatinine 1.2 mg/dL (0.7-1.3) 1.2 mg/dL (0.7-1.3) Estimated GFR (Cockcroft-Gault) 59.5 59.5 BUN/Creatinine Ratio 16 (6-20) Glucose Level 328 mg/dL (70-99) 401 mg/dL (70-99) Calcium Level 9.0 mg/dL (8.5-10.1) 8.7 mg/dL (8.5-10.1) Total Bilirubin 0.4 mg/dL (0.2-1.0) Aspartate Amino Transf (AST/SGOT) 96 U/L (15-37) Alanine Aminotransferase (ALT/SGPT) 27 U/L (16-63) Alkaline Phosphatase 121 U/L (46-116) Creatine Kinase 899 U/L (39-308) Creatine Kinase MB (Mass) 102.1 ng/mL (0.0-3.6) Creatine Kinase MB Relative Index 11.4 % (0-4) Troponin I Quantitative 9.612 ng/mL (0.000-0.055) 48.531 ng/mL (0.000-0.055) 78.435 ng/mL (0.000-0.055) AL-Erm-C-Type Natriuretic Peptide 1587 pg/mL (0-124) Total Protein 7.7 g/dL (6.4-8.2) Albumin 3.3 g/dL (3.4-5.0) Albumin/Globulin Ratio 0.8 (1.0-1.7) Glucose (Fingerstick) 317 mg/dL (70-99) Heparin Anti-Xa Act, Unfractionated < 0.10 IU/mL (0.30-0.70) Test 12/17/16 11:42 Glucose (Fingerstick) 137 mg/dL (70-99) Assessment/Plan Assessment/Plan Pt with CAD that comes in with a NONSTEMI and has an advanced cardiomyopathy. I discussed the situation with him as well as the risks involved with the options. He wants to proceed with a cath possible and is aware of the risk of with his poor LV function. Will take to record label intern today. Thank you for asking me to participate in the care of this pt. JANINA PATEL MD Dec 17, 2016 13:55
[2016-12-17] MEDS ORDERED: fentaNYL PF VIAL 100 MCG/2 ML VIAL ONE (13:59)
[2016-12-17] MEDS ORDERED: MIDAZOLAM HCL/PF 2 MG/2 ML VIAL. ONE (14:00)
[2016-12-17] MEDS ORDERED: IOHEXOL 300 MG/ML 100ML VIAL. IART ONE (14:15)
[2016-12-17] MEDS ORDERED: CONTRAST GIVEN MC PRN (14:15)
[2016-12-17] MEDS ORDERED: LIDOCAINE 2% 20 ML VIAL. IJ ONE (14:15)
[2016-12-17] MEDS ORDERED: fentaNYL PF VIAL 100 MCG/2 ML VIAL IV ONE (14:15)
[2016-12-17] MEDS ORDERED: HEPARIN for IV BOLUS 10,000 UNIT/10 ML VIAL. ONE (14:18)
--- NOTE | 2016-12-17 16:23 | PDOC2 ---
CONSULT Date of Consult Date of Consult DATE: 12/17/16 TIME: 16:17 Reason for Consult Reason for Consult: NSTEMI Referring Physician Referring Physician: Dr Stein Identification/Chief Complaint Chief Complaint Chest pain Problems: Source Source: Chart review, Patient History of Present Illness Reason for Visit: The patient is a 71-year-old male who underwent CABG in 2004 only using saphenous vein grafts, who presents with a week's history of chest pain. He has severe ischemic cardiomyopathy with an ejection fraction of 10-15%. He coronary angiogram today which showed that all his vein grafts are occluded. In terms of his nikolski vessels his RCA and LAD are occluded and he has significant disease in his left circumflex. He currently has a IABP. He has no chest pain. I was consulted to consider the patient for redo CABG. Past Medical History Cardiovascular: CAD, HTN Pulmonary: No pertinent hx, Bronchitis, COPD GI: GERD Renal/: No pertinent hx Past Surgical History Past Surgical History: Arthroscopy, CABG Family History Family History: Other Social History 1 pack per day ALCOHOL: occassional Drugs: None Lives: Alone Current Problem List Problem List Problems Medical Problems: (1) Non-STEMI (non-ST elevated myocardial infarction) Status: Acute Current Medications Current Medications Current Medications Acetaminophen/ Hydrocodone Bitart (Lortab 5/325) 1 tab 1X ONCE PO Last administered on 12/16/16 20:01; Start 12/16/16 at 20:00; Stop 12/16/16 at 20 :01; Status DC Aspirin (Children'S Aspirin) 324 mg 1X ONCE PO Last administered on 20:53; Start 12/16/16 at 20:30; Stop 12/16/16 at 20:31; Status DC Nitroglycerin (Nitrostat) 0.4 mg PRN Q5MIN PRN SL CHEST PAIN Last administered on 12/16/16 21:18; Start 12/16/16 at 20:30 Heparin Sodium/ Dextrose 500 ml @ 0 mls/hr CONT PRN IV SEE I/O RECORD Last administered on 12/16/16 21:58; Start 12/16/16 at 21:00 Heparin Sodium (Porcine) (Heparin Sodium) 1,750 unit PRN Q6HRS PRN IV FOR UFH LEVEL LESS THAN 0.2; Start 12/16/16 at 21:00 Info (Anti-Coagulation Monitoring By Pharmacy) 1 each PRN DAILY PRN MC SEE COMMENTS Last administered on 12/17/16 09:47; Start 12/16/16 at 21:00 Fentanyl Citrate (Fentanyl 2ml Vial) 50 mcg 1X ONCE IV Last administered on 21:44; Start 12/16/16 at 21:30; Stop 12/16/16 at 21:31; Status DC Ondansetron HCl (Zofran) 4 mg 1X ONCE IV Last administered on 12/16/16 21:41 ; Start 12/16/16 at 21:30; Stop 12/16/16 at 21:31; Status DC Furosemide (Lasix) 40 mg 1X ONCE IVP Last administered on 12/16/16 21:46; Start 12/16/16 at 21:30; Stop 12/16/16 at 21:31; Status DC Nitroglycerin/ Dextrose 250 ml @ 0 mls/hr 1X ONCE IV Last administered on 21:25; Start 12/16/16 at 21:00; Stop 12/16/16 at 21:02; Status DC Heparin Sodium (Porcine) (Heparin Sodium) 4,000 unit 1X ONCE IV Last administered on 12/16/16 21:53; Start 12/16/16 at 22:00; Stop 12/16/16 at 22 :01; Status DC Ondansetron HCl (Zofran) 4 mg PRN Q8HRS PRN IV NAUSEA/VOMITING; Start at 22:30; Stop 12/17/16 at 22:29 Sodium Chloride 1,000 ml @ 75 mls/hr [id number] IV ; Start 12/16/16 at 23:00; Stop 12/16/16 at 23:00; Status DC Insulin Aspart (NovoLOG) 0-5 UNITS TIDWMEALS SQ ; Start 12/17/16 at 08:00; Stop 12/17/16 at 09:47; Status DC Dextrose (Dextrose 50%-Water Syringe) 12.5 gm PRN Q15MIN PRN IV SEE COMMENTS; Start 12/16/16 at 22:45 Dextrose/Sodium Chloride 1,000 ml @ 75 mls/hr 1X ONCE IV Last administered on 12/17/16 00:19; Start 12/16/16 at 22:45; Stop 12/17/16 at 12:04; Status DC Alprazolam (Xanax) 0.25 mg PRN Q6HRS PRN PO ANXIETY / AGITATION Last administered on 12/17/16 01:14; Start 12/17/16 at 01:00 Morphine Sulfate 3 mg PRN Q2HR PRN IV SEVERE PAIN Last administered on 09:26; Start 12/17/16 at 01:00; Stop 12/17/16 at 09:47; Status DC Sodium Chloride 1,000 ml @ 40 mls/hr Q24H IV Last administered on 12/17/16 06:19; Start 12/17/16 at 06:30 Insulin Aspart (NovoLOG) 4 units 1X ONCE SQ Last administered on 12/17/16 06 :20; Start 12/17/16 at 06:30; Stop 12/17/16 at 06:31; Status DC Insulin Detemir (Levemir) 16 units HS SQ ; Start 12/17/16 at 21:00 Influenza Virus Vaccine Quadrival (Fluarix Quad [id number] Syringe) 0.5 ml ONCE ONCE VAX IM ; Start 12/17/16 at 10:00; Stop 12/17/16 at 10:01; Status DC Insulin Aspart (NovoLOG) 0-5 UNITS TIDWMEALS SQ ; Start 12/17/16 at 12:00 Aspirin (K[place]ena Aspirin) 325 mg DAILYWBKFT PO Last administered on 12/17/16 11 :23; Start 12/17/16 at 08:00 Midazolam HCl (Versed) 2 mg 1X ONCE IV Last administered on 12/17/16 11:23; Start 12/17/16 at 11:15; Stop 12/17/16 at 11:17; Status DC Fentanyl Citrate (Fentanyl 2ml Vial) 50 mcg PRN Q2HR PRN IV PAIN Last administered on 12/17/16 15:05; Start 12/17/16 at 11:15 Heparin Sodium/ Sodium Chloride 500 ml @ As Directed STK-MED ONCE .ROUTE ; Start 12/17/16 at 13:25; Stop 12/17/16 at 13:26; Status DC Lidocaine HCl 20 ml STK-MED ONCE .ROUTE ; Start 12/17/16 at 13:25; Stop at 13:26; Status DC Iohexol (Omnipaque 300 Mg/ml) 100 ml STK-MED ONCE .ROUTE ; Start 12/17/16 at 13 :25; Stop 12/17/16 at 13:26; Status DC Iohexol (Omnipaque 300 Mg/ml) 100 ml STK-MED ONCE .ROUTE ; Start 12/17/16 at 13 :55; Stop 12/17/16 at 13:56; Status DC Fentanyl Citrate (Fentanyl 2ml Vial) 100 mcg STK-MED ONCE .ROUTE ; Start at 13:59; Stop 12/17/16 at 14:00; Status DC Midazolam HCl (Versed) 2 mg STK-MED ONCE .ROUTE ; Start 12/17/16 at 14:00; Stop 12/17/16 at 14:01; Status DC Heparin Sodium/ Sodium Chloride 1,000 unit 1X ONCE IART Last administered on 12/17/16 14:15; Start 12/17/16 at 14:15; Stop 12/17/16 at 14:16; Status DC Midazolam HCl (Versed) 2 mg 1X ONCE IV Last administered on 12/17/16t 14:15; Start 12/17/16 at 14:15; Stop 12/17/16 at 14:16; Status DC Fentanyl Citrate (Fentanyl 2ml Vial) 100 mcg 1X ONCE IV ; Start 12/17/16 at 14 :15; Stop 12/17/16 at 14:16; Status DC Lidocaine HCl 20 ml 1X ONCE IJ Last administered on 12/17/16 14:15; Start 12/17/16 at 14:15; Stop 12/17/16 at 14:16; Status DC Iohexol (Omnipaque 300 Mg/ml) 100 ml 1X ONCE IART Last administered on 14:15; Start 12/17/16 at 14:15; Stop 12/17/16 at 14:16; Status DC Info (Do NOT chart on this entry -- for MONITORING) 1 each PRN DAILY PRN MC SEE COMMENTS; Start 12/17/16 at 14:15; Stop 12/19/16 at 14:14 Heparin Sodium (Porcine) (Heparin Sodium) 10,000 unit STK-MED ONCE .ROUTE ; Start 12/17/16 at 14:18; Stop 12/17/16 at 14:19; Status DC Heparin Sodium/ Sodium Chloride 500 ml @ As Directed STK-MED ONCE .ROUTE ; Start 12/17/16 at 14:40; Stop 12/17/16 at 14:41; Status DC Active Scripts Active Reported Metformin Hcl Er (Metformin Hcl) 1,000 Mg Tab.er.24 1,000 Mg PO BID Actos (Pioglitazone Hcl) 30 Mg Tablet 30 Mg PO DAILYWBKFT Allergies Allergies: Coded Allergies: Cwkzyie-Ekv-Zcb Reductase Inhibitor (Verified Allergy, Intermediate, ) ROS General: No: Chills, Night Sweats, Fatigue, Malaise, Appetite PSYCHOLOGICAL ROS: No: Anxiety, Behavioral Disorder, Concentration difficultie , Decreased libido, Depression, Disorientation, Hallucinations, Hostility, Irritablity, Memory difficulties, Mood Swings, Obsessive thoughts, Physical abuse, Sexual abuse, Sleep disturbances, Suicidal ideation Eyes: No Blurry vision, No Decreased vision, No Double vision, No Dry eyes, No Excessive tearing, No Eye Pain, No Itchy Eyes, No Loss of vision, No Photophobia , No Scotomata, No Uses contacts, No Uses glasses HEENT: No: Heacaches, Visual Changes, Hearing change, Nasal congestion, Nasal discharge, Oral lesions, Sinus pain, Sore Throat, Epistaxis, Sneezing, Snoring, Tinnitus, Vertigo, Vocal changes ALLERGY AND IMMUNOLOGY: No: Hives, Insect Bite Sensitivity, Itchy/Watery Eyes, Nasal Congestion, Post Nasal Drip, Seasonal Allergies Hematological and Lymphatic: No: Bleeding Problems, Blood Clots, Blood Transfusions, Brusing, Night Sweats, Pallor, Swollen Lymph Nodes ENDOCRINE: No: Breast Changes, Galactorrhea, Hair Pattern Changes, Hot Flashes , Malaise/lethargy, Mood Swings, Palpitations, Polydipsia/polyuria, Skin Changes , Temperature Intolerance, Unexpected Weight Changes Respiratory: YES: Shortness of breath, No: Cough, Hemoptysis, Orthopnea, Pleuritic Pain, SOB with excertion, Sputum Changes, Stridor, Tachypnea, Wheezing Cardiovascular: yes Chest Pain, No Palpitations, No Orthopnea, No Paroxysmal Noc. Dyspnea, No Edema, No Lt Headedness Gastrointestinal: No Nausea, No Vomiting, No Abdominal Pain, No Diarrhea, No Constipation, No Melena, No Hematochezia Genitourinary: No Dysuria, No Frequency, No Incontinence, No Hematuria, No Retention, No Discharge, No Urgency, No Pain, No Flank Pain Musculoskeletal: No Gait Disturbance, No Joint Pain, No Joint Stiffness, No Joint Swelling, No Muscle Pain, No Muscular Weakness, No Pain In:, No Swelling In: Neurological: No Behavorial Changes, No Bowel/Bladder ControlChng, No Confusion , No Dizziness, No Gait Disturbance, No Headaches, No Impaired Coord/balance, No Memory Loss, No Numbness/Tingling, No Seizures, No Speech Problems, No Tremors, No Visual Changes, No Weakness Skin: No Dry Skin, No Eczema, No Hair Changes, No Lumps, No Mole Changes, No Mottling, No Nail Changes, No Pruritus, No Rash, No Skin Lesion Changes, No Acne Physical Exam General: Alert, Oriented X3 HEENT: Atraumatic, PERRLA Lungs: Clear to auscultation Heart: Regular rate, Normal S1, Normal S2 Abdomen: Soft, No tenderness Extremities: No edema Skin: No significant lesion Neuro: Normal gait, Normal speech, Strength at 5/5 X4 ext, Normal tone, Sensation intact, Cranial nerves 3-12 NL Psych/Mental Status: Mental status NL MUSCULOSKELETAL: No deformity Vitals VITALS Vital Signs Date Time Temp Pulse Resp B/P (MAP) Pulse Ox O2 Delivery O2 Flow Rate FiO2 12/17/16 15:11 82 97/39 (58) 12/17/16 15:09 16 96 Room Air 12/17/16 12:00 97.7 97.7 12/17/16 09:00 2.0 Labs Labs Laboratory Tests Test 12/16/16 18:49 12/17/16 00:23 12/17/16 04:16 12/17/16 10:48 White Blood Count 10.1 x10^3/uL (4.0-11.0) 8.1 x10^3/uL (4.0-11.0) Red Blood Count 4.58 x10^6/uL (4.30-5.70) 4.26 x10^6/uL (4.30-5.70) Hemoglobin 13.6 g/dL (13.0-17.5) 12.7 g/dL (13.0-17.5) Hematocrit 41.2 % (39.0-53.0) 38.0 % (39.0-53.0) Mean Corpuscular Volume 90 fL (79-100) 89 fL (79-100) Mean Corpuscular Hemoglobin 30 pg (25-35) 30 pg (25-35) Mean Corpuscular Hemoglobin Concent 33 g/dL (31-37) 33 g/dL (31-37) Red Cell Distribution Width 15.3 % (11.5-14.5) 14.9 % (11.5-14.5) Platelet Count 221 x10^3/uL (140-400) 198 x10^3/uL (140-400) Neutrophils (%) (Auto) 82 % (31-73) 74 % (31-73) Lymphocytes (%) (Auto) 12 % (24-48) 18 % (24-48) Monocytes (%) (Auto) 5 % (0-9) 6 % (0-9) Eosinophils (%) (Auto) 0 % (0-3) 1 % (0-3) Basophils (%) (Auto) 0 % (0-3) 0 % (0-3) Neutrophils # (Auto) 8.3 x10^3uL (1.8-7.7) 6.1 x10^3uL (1.8-7.7) Lymphocytes # (Auto) 1.2 x10^3/uL (1.0-4.8) 1.5 x10^3/uL (1.0-4.8) Monocytes # (Auto) 0.5 x10^3/uL (0.0-1.1) 0.5 x10^3/uL (0.0-1.1) Eosinophils # (Auto) 0.0 x10^3/uL (0.0-0.7) 0.1 x10^3/uL (0.0-0.7) Basophils # (Auto) 0.0 x10^3/uL (0.0-0.2) 0.0 x10^3/uL (0.0-0.2) Prothrombin Time 12.9 SEC (11.7-14.0) Prothromb Time International Ratio 1.0 (0.8-1.1) Activated Partial Thromboplast Time 30 SEC (24-38) Sodium Level 138 mmol/L (136-145) 136 mmol/L (136-145) Potassium Level 3.6 mmol/L (3.5-5.1) 4.3 mmol/L (3.5-5.1) Chloride Level 101 mmol/L (98-107) 101 mmol/L (98-107) Carbon Dioxide Level 30 mmol/L (21-32) 30 mmol/L (21-32) Anion Gap 7 (6-14) 5 (6-14) Blood Urea Nitrogen 19 mg/dL (8-26) 22 mg/dL (8-26) Creatinine 1.2 mg/dL (0.7-1.3) 1.2 mg/dL (0.7-1.3) Estimated GFR (Cockcroft-Gault) 59.5 59.5 BUN/Creatinine Ratio 16 (6-20) Glucose Level 328 mg/dL (70-99) 401 mg/dL (70-99) Calcium Level 9.0 mg/dL (8.5-10.1) 8.7 mg/dL (8.5-10.1) Total Bilirubin 0.4 mg/dL (0.2-1.0) Aspartate Amino Transf (AST/SGOT) 96 U/L (15-37) Alanine Aminotransferase (ALT/SGPT) 27 U/L (16-63) Alkaline Phosphatase 121 U/L (46-116) Creatine Kinase 899 U/L (39-308) Creatine Kinase MB (Mass) 102.1 ng/mL (0.0-3.6) Creatine Kinase MB Relative Index 11.4 % (0-4) Troponin I Quantitative 9.612 ng/mL (0.000-0.055) 48.531 ng/mL (0.000-0.055) 78.435 ng/mL (0.000-0.055) RV-Ohx-S-Type Natriuretic Peptide 1587 pg/mL (0-124) Total Protein 7.7 g/dL (6.4-8.2) Albumin 3.3 g/dL (3.4-5.0) Albumin/Globulin Ratio 0.8 (1.0-1.7) Glucose (Fingerstick) 317 mg/dL (70-99) Heparin Anti-Xa Act, Unfractionated < 0.10 IU/mL (0.30-0.70) Test 12/17/16 11:42 Glucose (Fingerstick) 137 mg/dL (70-99) Laboratory Tests Test 12/16/16 18:49 12/17/16 00:23 12/17/16 04:16 12/17/16 10:48 White Blood Count 10.1 x10^3/uL (4.0-11.0) 8.1 x10^3/uL (4.0-11.0) Red Blood Count 4.58 x10^6/uL (4.30-5.70) 4.26 x10^6/uL (4.30-5.70) Hemoglobin 13.6 g/dL (13.0-17.5) 12.7 g/dL (13.0-17.5) Hematocrit 41.2 % (39.0-53.0) 38.0 % (39.0-53.0) Mean Corpuscular Volume 90 fL (79-100) 89 fL (79-100) Mean Corpuscular Hemoglobin 30 pg (25-35) 30 pg (25-35) Mean Corpuscular Hemoglobin Concent 33 g/dL (31-37) 33 g/dL (31-37) Red Cell Distribution Width 15.3 % (11.5-14.5) 14.9 % (11.5-14.5) Platelet Count 221 x10^3/uL (140-400) 198 x10^3/uL (140-400) Neutrophils (%) (Auto) 82 % (31-73) 74 % (31-73) Lymphocytes (%) (Auto) 12 % (24-48) 18 % (24-48) Monocytes (%) (Auto) 5 % (0-9) 6 % (0-9) Eosinophils (%) (Auto) 0 % (0-3) 1 % (0-3) Basophils (%) (Auto) 0 % (0-3) 0 % (0-3) Neutrophils # (Auto) 8.3 x10^3uL (1.8-7.7) 6.1 x10^3uL (1.8-7.7) Lymphocytes # (Auto) 1.2 x10^3/uL (1.0-4.8) 1.5 x10^3/uL (1.0-4.8) Monocytes # (Auto) 0.5 x10^3/uL (0.0-1.1) 0.5 x10^3/uL (0.0-1.1) Eosinophils # (Auto) 0.0 x10^3/uL (0.0-0.7) 0.1 x10^3/uL (0.0-0.7) Basophils # (Auto) 0.0 x10^3/uL (0.0-0.2) 0.0 x10^3/uL (0.0-0.2) Prothrombin Time 12.9 SEC (11.7-14.0) Prothromb Time International Ratio 1.0 (0.8-1.1) Activated Partial Thromboplast Time 30 SEC (24-38) Sodium Level 138 mmol/L (136-145) 136 mmol/L (136-145) Potassium Level 3.6 mmol/L (3.5-5.1) 4.3 mmol/L (3.5-5.1) Chloride Level 101 mmol/L (98-107) 101 mmol/L (98-107) Carbon Dioxide Level 30 mmol/L (21-32) 30 mmol/L (21-32) Anion Gap 7 (6-14) 5 (6-14) Blood Urea Nitrogen 19 mg/dL (8-26) 22 mg/dL (8-26) Creatinine 1.2 mg/dL (0.7-1.3) 1.2 mg/dL (0.7-1.3) Estimated GFR (Cockcroft-Gault) 59.5 59.5 BUN/Creatinine Ratio 16 (6-20) Glucose Level 328 mg/dL (70-99) 401 mg/dL (70-99) Calcium Level 9.0 mg/dL (8.5-10.1) 8.7 mg/dL (8.5-10.1) Total Bilirubin 0.4 mg/dL (0.2-1.0) Aspartate Amino Transf (AST/SGOT) 96 U/L (15-37) Alanine Aminotransferase (ALT/SGPT) 27 U/L (16-63) Alkaline Phosphatase 121 U/L (46-116) Creatine Kinase 899 U/L (39-308) Creatine Kinase MB (Mass) 102.1 ng/mL (0.0-3.6) Creatine Kinase MB Relative Index 11.4 % (0-4) Troponin I Quantitative 9.612 ng/mL (0.000-0.055) 48.531 ng/mL (0.000-0.055) 78.435 ng/mL (0.000-0.055) NX-Rpc-Z-Type Natriuretic Peptide 1587 pg/mL (0-124) Total Protein 7.7 g/dL (6.4-8.2) Albumin 3.3 g/dL (3.4-5.0) Albumin/Globulin Ratio 0.8 (1.0-1.7) Glucose (Fingerstick) 317 mg/dL (70-99) Heparin Anti-Xa Act, Unfractionated < 0.10 IU/mL (0.30-0.70) Test 12/17/16 11:42 Glucose (Fingerstick) 137 mg/dL (70-99) Assessment/Plan Assessment/Plan 71-year-old male s/p CABG in 2004 only using saphenous vein grafts, who presents with a week's history of chest pain. He has severe ischemic cardiomyopathy with an ejection fraction of 10-15%. He coronary angiogram today which showed that all his vein grafts are occluded. In terms of his nikolski vessels his RCA and LAD are occluded and he has significant disease in his left circumflex. Mr. Starkey has an EF of 10-15%. His LV is barely moving. The anterior and lateral oliver were akinetic. Although he does have bypassable nikolski vessels, his end- stage ischemic cardiomyopathy puts him at prohibitive risk for redo CABG. I had a long discussion with the patient and he expressed understanding. Would recommend advanced heart failure management. JOANN CONDE MD Dec 17, 2016 16:23
--- NOTE | 2016-12-17 16:27 | PDOC ---
PULMONARY PROGRESS NOTES Vitals Vital Signs Date Time Temp Pulse Resp B/P (MAP) Pulse Ox O2 Delivery O2 Flow Rate FiO2 12/17/16 15:11 82 97/39 (58) 12/17/16 15:09 16 96 Room Air 12/17/16 12:00 97.7 97.7 12/17/16 09:00 2.0 Labs Laboratory Tests Test 12/16/16 18:49 12/17/16 00:23 12/17/16 04:16 12/17/16 10:48 White Blood Count 10.1 x10^3/uL (4.0-11.0) 8.1 x10^3/uL (4.0-11.0) Red Blood Count 4.58 x10^6/uL (4.30-5.70) 4.26 x10^6/uL (4.30-5.70) Hemoglobin 13.6 g/dL (13.0-17.5) 12.7 g/dL (13.0-17.5) Hematocrit 41.2 % (39.0-53.0) 38.0 % (39.0-53.0) Mean Corpuscular Volume 90 fL (79-100) 89 fL (79-100) Mean Corpuscular Hemoglobin 30 pg (25-35) 30 pg (25-35) Mean Corpuscular Hemoglobin Concent 33 g/dL (31-37) 33 g/dL (31-37) Red Cell Distribution Width 15.3 % (11.5-14.5) 14.9 % (11.5-14.5) Platelet Count 221 x10^3/uL (140-400) 198 x10^3/uL (140-400) Neutrophils (%) (Auto) 82 % (31-73) 74 % (31-73) Lymphocytes (%) (Auto) 12 % (24-48) 18 % (24-48) Monocytes (%) (Auto) 5 % (0-9) 6 % (0-9) Eosinophils (%) (Auto) 0 % (0-3) 1 % (0-3) Basophils (%) (Auto) 0 % (0-3) 0 % (0-3) Neutrophils # (Auto) 8.3 x10^3uL (1.8-7.7) 6.1 x10^3uL (1.8-7.7) Lymphocytes # (Auto) 1.2 x10^3/uL (1.0-4.8) 1.5 x10^3/uL (1.0-4.8) Monocytes # (Auto) 0.5 x10^3/uL (0.0-1.1) 0.5 x10^3/uL (0.0-1.1) Eosinophils # (Auto) 0.0 x10^3/uL (0.0-0.7) 0.1 x10^3/uL (0.0-0.7) Basophils # (Auto) 0.0 x10^3/uL (0.0-0.2) 0.0 x10^3/uL (0.0-0.2) Prothrombin Time 12.9 SEC (11.7-14.0) Prothromb Time International Ratio 1.0 (0.8-1.1) Activated Partial Thromboplast Time 30 SEC (24-38) Sodium Level 138 mmol/L (136-145) 136 mmol/L (136-145) Potassium Level 3.6 mmol/L (3.5-5.1) 4.3 mmol/L (3.5-5.1) Chloride Level 101 mmol/L (98-107) 101 mmol/L (98-107) Carbon Dioxide Level 30 mmol/L (21-32) 30 mmol/L (21-32) Anion Gap 7 (6-14) 5 (6-14) Blood Urea Nitrogen 19 mg/dL (8-26) 22 mg/dL (8-26) Creatinine 1.2 mg/dL (0.7-1.3) 1.2 mg/dL (0.7-1.3) Estimated GFR (Cockcroft-Gault) 59.5 59.5 BUN/Creatinine Ratio 16 (6-20) Glucose Level 328 mg/dL (70-99) 401 mg/dL (70-99) Calcium Level 9.0 mg/dL (8.5-10.1) 8.7 mg/dL (8.5-10.1) Total Bilirubin 0.4 mg/dL (0.2-1.0) Aspartate Amino Transf (AST/SGOT) 96 U/L (15-37) Alanine Aminotransferase (ALT/SGPT) 27 U/L (16-63) Alkaline Phosphatase 121 U/L (46-116) Creatine Kinase 899 U/L (39-308) Creatine Kinase MB (Mass) 102.1 ng/mL (0.0-3.6) Creatine Kinase MB Relative Index 11.4 % (0-4) Troponin I Quantitative 9.612 ng/mL (0.000-0.055) 48.531 ng/mL (0.000-0.055) 78.435 ng/mL (0.000-0.055) MU-Chc-J-Type Natriuretic Peptide 1587 pg/mL (0-124) Total Protein 7.7 g/dL (6.4-8.2) Albumin 3.3 g/dL (3.4-5.0) Albumin/Globulin Ratio 0.8 (1.0-1.7) Glucose (Fingerstick) 317 mg/dL (70-99) Heparin Anti-Xa Act, Unfractionated < 0.10 IU/mL (0.30-0.70) Test 12/17/16 11:42 Glucose (Fingerstick) 137 mg/dL (70-99) Laboratory Tests Test 12/16/16 18:49 12/17/16 00:23 12/17/16 04:16 12/17/16 10:48 White Blood Count 10.1 x10^3/uL (4.0-11.0) 8.1 x10^3/uL (4.0-11.0) Red Blood Count 4.58 x10^6/uL (4.30-5.70) 4.26 x10^6/uL (4.30-5.70) Hemoglobin 13.6 g/dL (13.0-17.5) 12.7 g/dL (13.0-17.5) Hematocrit 41.2 % (39.0-53.0) 38.0 % (39.0-53.0) Mean Corpuscular Volume 90 fL (79-100) 89 fL (79-100) Mean Corpuscular Hemoglobin 30 pg (25-35) 30 pg (25-35) Mean Corpuscular Hemoglobin Concent 33 g/dL (31-37) 33 g/dL (31-37) Red Cell Distribution Width 15.3 % (11.5-14.5) 14.9 % (11.5-14.5) Platelet Count 221 x10^3/uL (140-400) 198 x10^3/uL (140-400) Neutrophils (%) (Auto) 82 % (31-73) 74 % (31-73) Lymphocytes (%) (Auto) 12 % (24-48) 18 % (24-48) Monocytes (%) (Auto) 5 % (0-9) 6 % (0-9) Eosinophils (%) (Auto) 0 % (0-3) 1 % (0-3) Basophils (%) (Auto) 0 % (0-3) 0 % (0-3) Neutrophils # (Auto) 8.3 x10^3uL (1.8-7.7) 6.1 x10^3uL (1.8-7.7) Lymphocytes # (Auto) 1.2 x10^3/uL (1.0-4.8) 1.5 x10^3/uL (1.0-4.8) Monocytes # (Auto) 0.5 x10^3/uL (0.0-1.1) 0.5 x10^3/uL (0.0-1.1) Eosinophils # (Auto) 0.0 x10^3/uL (0.0-0.7) 0.1 x10^3/uL (0.0-0.7) Basophils # (Auto) 0.0 x10^3/uL (0.0-0.2) 0.0 x10^3/uL (0.0-0.2) Prothrombin Time 12.9 SEC (11.7-14.0) Prothromb Time International Ratio 1.0 (0.8-1.1) Activated Partial Thromboplast Time 30 SEC (24-38) Sodium Level 138 mmol/L (136-145) 136 mmol/L (136-145) Potassium Level 3.6 mmol/L (3.5-5.1) 4.3 mmol/L (3.5-5.1) Chloride Level 101 mmol/L (98-107) 101 mmol/L (98-107) Carbon Dioxide Level 30 mmol/L (21-32) 30 mmol/L (21-32) Anion Gap 7 (6-14) 5 (6-14) Blood Urea Nitrogen 19 mg/dL (8-26) 22 mg/dL (8-26) Creatinine 1.2 mg/dL (0.7-1.3) 1.2 mg/dL (0.7-1.3) Estimated GFR (Cockcroft-Gault) 59.5 59.5 BUN/Creatinine Ratio 16 (6-20) Glucose Level 328 mg/dL (70-99) 401 mg/dL (70-99) Calcium Level 9.0 mg/dL (8.5-10.1) 8.7 mg/dL (8.5-10.1) Total Bilirubin 0.4 mg/dL (0.2-1.0) Aspartate Amino Transf (AST/SGOT) 96 U/L (15-37) Alanine Aminotransferase (ALT/SGPT) 27 U/L (16-63) Alkaline Phosphatase 121 U/L (46-116) Creatine Kinase 899 U/L (39-308) Creatine Kinase MB (Mass) 102.1 ng/mL (0.0-3.6) Creatine Kinase MB Relative Index 11.4 % (0-4) Troponin I Quantitative 9.612 ng/mL (0.000-0.055) 48.531 ng/mL (0.000-0.055) 78.435 ng/mL (0.000-0.055) GT-Qqz-H-Type Natriuretic Peptide 1587 pg/mL (0-124) Total Protein 7.7 g/dL (6.4-8.2) Albumin 3.3 g/dL (3.4-5.0) Albumin/Globulin Ratio 0.8 (1.0-1.7) Glucose (Fingerstick) 317 mg/dL (70-99) Heparin Anti-Xa Act, Unfractionated < 0.10 IU/mL (0.30-0.70) Test 12/17/16 11:42 Glucose (Fingerstick) 137 mg/dL (70-99) Medications Active Scripts Medications Dose Route/Sig Max Daily Dose Days Date Category Metformin Hcl Er (Metformin Hcl) 1,000 Mg Tab.er.24 1,000 Mg PO BID 06/14/13 Reported Actos (Pioglitazone Hcl) 30 Mg Tablet 30 Mg PO [id number] 06/14/13 Reported Impression . FULL NOTE DICTATED ACUTE RESP FAILURE MULTIFACTORIAL CAD CM 20% AECOPD GAMAL HUSSEIN MD Dec 17, 2016 16:27
[2016-12-17] MEDS ORDERED: ALBUTEROL SULFATE 2.5 MG/3 ML NEBU. NEB PRN (16:30)
[2016-12-17] MEDS ORDERED: LIDOCAINE 2% 100 MG/5 ML SYRINGE. IV ONE (17:00)
[2016-12-17] MEDS: CYCLOBENZAPRINE 10 MG TABLET. PO PRN ×2 (17:05→23:06)
[2016-12-17] MEDS: NICOTINE 21MG PATCH. TD SCH (17:05)
--- NOTE | 2016-12-17 17:29 | CARD ---
APPROVED REPORT EXAM: Two-dimensional and M-mode echocardiogram with Doppler and color Doppler. Other Information Quality : Average Rhythm : NSR INDICATION COPD Acute UT Dyspnea Chest Pain Non STEMI Surgery/Intervention CABG: Date: 2004 2D DIMENSIONS Left Atrium(2D)3.8 (1.6-4.0cm)IVSd1.3 (0.7-1.1cm) Aortic Root(2D)3.9 (2.0-3.7cm)LVDd6.0 (3.9-5.9cm) LVOT Diameter2.5 (1.8-2.4cm)PWd1.3 (0.7-1.1cm) LVDs5.4 (2.5-4.0cm)FS (%) 9.1 % SV34.9 mlLVEF(%)20.0 (>50%) Aortic Valve AoV Peak Danie.54.1cm/sAoV VTI9.5cm AO Peak GR.1.2mmHgLVOT VTI 8.76cm AO Mean GR.1mmHg Mitral Valve MV E Lrslawlg30.5cm/sMV E Peak Gr.1mmHg MV DECEL [id number] A Dgwwmfdv53.4cm/s MV MYD56gpM/A Ratio0.9 MV A Dctxtvkh192kfSMB (PHT)4.58cm2 TDI Lateral E' P. V7.66cm/sMedial E' P. V4.76cm/s E/Lateral E'6.1E/Medial E'9.8 LEFT VENTRICLE The Left Ventricle is dilated. There is mild concentric left ventricular hypertrophy. Left ventricle systolic function is severely impaired. The Ejection Fraction is 20%. Severe hypokinesis of the mid t o posterior basal and mid to inferior basal segments. Mid to apical septal hypokinesis. Tissue Dopple r imaging reveals moderate left ventricular diastolic dysfunction. RIGHT VENTRICLE The right ventricle is normal size. The right ventricular systolic function is normal. ATRIA The left atrium size is normal. The right atrium size is normal. The interatrial septum is intact wit h no evidence for an atrial septal defect or patent foramen ovale as noted on 2-D or Doppler imaging. AORTIC VALVE The aortic valve is normal in structure and function. The aortic valve is trileaflet. Doppler and Col or Flow revealed no significant aortic regurgitation. There is no significant aortic valvular stenosi s. MITRAL VALVE The mitral valve is normal in structure and function. There is no mitral valve stenosis. Doppler and Color Flow revealed no mitral valve regurgitation noted. TRICUSPID VALVE The tricuspid valve is normal in structure and function. Doppler and Color Flow revealed no tricuspid valve regurgitation noted. Unable to estimate PA pressure. There is no tricuspid valve stenosis. PULMONIC VALVE The pulmonic valve is not well visualized. Doppler and Color Flow revealed no pulmonic valvular regur gitation. There is no pulmonic valvular stenosis. GREAT VESSELS The aortic root is enlarged measuring 3.9 cm. Pulmonary veins not recorded. The IVC was not visualize d. PERICARDIAL EFFUSION There is no evidence of significant pericardial effusion. Critical Notification Physician Notified Date: 12/17/2016 Time: 11:29 Physician Name:Dr. Stein Critical Value: Yes <Conclusion> The Left Ventricle is dilated. There is mild concentric left ventricular hypertrophy. Left ventricle systolic function is severely impaired. The Ejection Fraction is 20%. Tissue Doppler imaging reveals moderate left ventricular diastolic dysfunction. The left atrium size is normal. The right atrium size is normal. The aortic valve is normal in structure and function. The aortic valve is trileaflet. The mitral valve is normal in structure and function. Doppler and Color Flow revealed no tricuspid valve regurgitation noted. Unable to estimate PA pressur e. The tricuspid valve is normal in structure and function. The pulmonic valve is not well visualized. There is no evidence of significant pericardial effusion.
--- NOTE | 2016-12-17 17:50 | CARD ---
APPROVED REPORT Procedure(s) performed: Moderate Sedation: 53 MIN HISTORY The patient is a 71 year-old male with a history of : previous NC, diabetes mellitus with treatment, coronary artery disease, chronic lung disease, tobacco history() : The patient is a current smoker, h ypertension, previous CABG (The CABG date was ), dyslipidemia, Pt with chest pains for one week and m arkedly elevated troponin. INDICATION The indication(s) include : non-STEMI , chest pain. CASE TECHNIQUE The patient was brought electively into the cardiac catheterization lab. A timeout was performed conf irming the patient's name, date of , procedure, and site of procedure. All necessary parties wer e wearing the appropriate personal protective equipment and radiation monitoring devices. After expla ining the risks and benefits of the procedure, informed consent was obtained.(See nursing notes for m edications administered). The right groin was sterilely prepped and draped. The right femoral groin w as infiltrated with 2% Lidocaine subcutaneous anesthesia. A sheath was inserted into the right femora l artery without difficulty. Coronary angiography was performed using coronary diagnostic catheters. The left coronary system was accessed and visualized with a Diagnostic catheter. The right coronary s ystem was accessed and visualized with a Diagnostic catheter. The left ventricle was accessed and vis ualized with a Diagnostic catheter. The left internal mammary artery was accessed and visualized with a Diagnostic catheter. The saphenous vein graft was accessed and visualized with a Diagnostic cathet er. Left ventricular/Aortic Valve gradient assessed on pullback. Left ventriculogram was performed in EDWARDS projection. An aortogram of the ascending aorta was performed. The views were reviewed and I dec ided that we needed IABP suport. The sheath was exchanged for an IABP sheath and the IABP catheter wa s inserted and positioned under fluoro. The sheath and IABP catheter were secured in place and the ca theter was connected to the console obtaining a normal function. The pt was now free of chest pain so I decided to stop and transfer him to the ICU. Pt transfered in stable condition and free of chest p ain. Coronary Angiography The patient's coronary anatomy is right dominant. The left main coronary artery is a medium size vessel free of disease. The left main bifurcates to th e left anterior descending and circumflex. The left anterior descending artery is a medium size vessel with stenosis. There is a 80% stenosis in the mid segment. and 100% in the distal segment The first diagonal branch is a small size vessel wit h stenosis. There is a 99% stenosis in the proximal segment. The second diagonal branch is a small si ze vessel with moderate-severe diffused disease. The circumflex artery is a medium size vessel with stenosis. There is a 100% stenosis in the mid segm ent. The first obtuse marginal branch is a small size vessel with moderate diffused disease. The rest of the marginals were not seen The right coronary artery is a large size vessel with stenosis. There is a 100% stenosis in the proxi mal segment. The right posterior descending artery is a medium size vessel with moderate diffused dis ease. The right posterolateral branch is a small size vessel with mild-moderate diffused disease. The YODER is normal and is not connected to any vessel Aorta The ascending aorta is dilated and NO OPEN graft was seen Conclusion This pt has severe [place] vessel CAD and severe graft disease with all of the grafts occluded. There is an advanced dilated ischemic cardiomyopathy. An IABP was inserted for support and the pt is free of chest pain and hemodynamically stable. Will get a CV surgery consult to evaluate him for possible redo CABGS.
[2016-12-17] MEDS: NOREPINEPHRIN PREMIX 250 ML IV PRN (19:45)
[2016-12-17] MEDS ORDERED: ALBUMIN HUMAN 5% 500 ML IV ONE (19:45)
--- NOTE | 2016-12-17 20:23 | CONS ---
DATE OF CONSULTATION: 12/17/2016 ATTENDING PHYSICIAN: Dr. Pepito Moreno. REASON FOR CONSULTATION: The patient seen in pulmonary consultation at the request of Dr. Moreno for acute respiratory failure and abnormal x-ray. HISTORY OF PRESENT ILLNESS: The patient is a 71-year-old that presented to the Emergency Department with increasing waxing and waning chest discomfort for the past several days and he has had previous coronary artery disease status post coronary artery bypass grafting in 2002. He described the substernal chest discomfort as pressure and stabbing. He had some associated nausea, increasing shortness of breath. The patient underwent a chest x-ray. I was asked to see him in consultation for the above. Chest x-ray was personally reviewed. There are some chronic changes of emphysema and scarring. Otherwise, no acute infiltrates. Part of the patient's workup included an echocardiogram, which revealed a low ejection fraction close to 20%. The patient is currently in the intensive care unit. He just underwent coronary angiogram and the report is unavailable at this time. He does have some 3-vessel coronary artery disease. He is awake, alert, following commands. He states that he continues to smoke. He does not experience frequent acute exacerbations of COPD. PAST MEDICAL HISTORY: Remarkable for coronary artery disease with previous coronary artery bypass grafting, COPD, type 2 diabetes, hyperlipidemia, previously abnormal CT of the chest revealing bilateral small nodules and slight left hilar adenopathy per Dr. Moreno's H and P. SOCIAL HISTORY: Continues to smoke. He drinks occasionally. He is currently retired. REVIEW OF SYSTEMS: As indicated above, otherwise, a 10-point system was reviewed and negative. PHYSICAL EXAMINATION: VITAL SIGNS: Stable. O2 saturation is greater than 92% on 2 liters. HEENT: Eyes: The sclerae were nonicteric. NECK: Jugular venous distention was not elevated. No lymphadenopathy. CHEST: Full expansion. LUNGS: Adequate airway flow, no wheezes. CARDIOVASCULAR: Regular rate and rhythm with S1, S2, no S3. ABDOMEN: Soft, nontender, nondistended. EXTREMITIES: No clubbing, cyanosis or edema. CHEST X-RAY: Reviewed. LABORATORY DATA: Reviewed as indicated above. IMPRESSION: 1. Acute respiratory failure, present upon admission. 2. Non-ST segment elevation myocardial infarction. 3. Chronic obstructive pulmonary disease. 4. Coronary artery disease with previous coronary artery bypass grafting. 5. Ischemic cardiomyopathy, ejection fraction 20%. 6. Abnormal CT of the chest revealing pulmonary nodules. PLAN: 1. As indicated above, the patient underwent cardiac catheterization, case is currently being discussed, we will defer any additional workup or intervention to Dr. Stein. 2. Continue oxygen supplementation. 3. Nebulized treatments. 4. No need for antibiotics. 5. No need for steroids. 6. Repeat CT of the chest as an outpatient. I do appreciate the privilege in sharing in the patient's care. GAMAL HUSSEIN MD DR: VIVIENNE/nela JOB#: [id number] / [id number]
[2016-12-17] MEDS ORDERED: INSULIN DETEMIR 300 UNITS/3 ML INSULN.PEN. SQ SCH (21:00)
[2016-12-17] MEDS: HEPARIN 25,000UTS/500ML PREMIX 500 ML IV PRN (23:37)
[2016-12-18] VITALS (22 sets, daily range): BP systolic 94–124; BP diastolic 21–68
[2016-12-18] MEDS: ALPRAZolam 0.25 MG TABLET PO PRN ×3 (02:13→13:28)
[2016-12-18] MEDS: fentaNYL PF VIAL 100 MCG/2 ML VIAL IV PRN ×3 (04:32→16:59)
[2016-12-18 06:07] LABS: BASO % 0 % (0-3); EOS % 1 % (0-3); HEMOGLOBIN 11.6 g/dL (13.0-17.5); LYMPH # 1.5 x10^3/uL (1.0-4.8); LYMPH % 16 % (24-48); MEAN CORPUSCULAR HEMOGLOBIN 30 pg (25-35); MEAN CORPUSCULAR HGB CONC 33 g/dL (31-37); MEAN CORPUSCULAR VOLUME 89 fL (79-100); MONO % 5 % (0-9); NEUT % 77 % (31-73); PLATELET COUNT 157 x10^3/uL (140-400); RED BLOOD COUNT 3.93 x10^6/uL (4.30-5.70); RED CELL DISTRIBUTION WIDTH 14.9 % (11.5-14.5)
[2016-12-18 06:35] LABS: CALCIUM 8.5 mg/dL (8.5-10.1); CREATININE 1.1 mg/dL (0.7-1.3); GFR 65.8; POTASSIUM 3.7 mmol/L (3.5-5.1)
[2016-12-18 06:40] LABS: CHOLESTEROL/HDL RATIO 2.9
--- NOTE | 2016-12-18 08:01 | RAD ---
Portable chest, 12/18/2016: History: Respiratory failure Comparison is made to a study from 12/16/2016. There has been a previous median sternotomy. An aortic balloon assist pump is now evident with its tip overlying the proximal descending thoracic aorta at the T6-7 level. The heart size is normal. There are now acinar and interstitial type opacities in the lungs with poor definition of the underlying pulmonary vascularity. There is no evidence of pleural fluid or pneumothorax. IMPRESSION: 1. An aortic balloon assist pump has been placed extending into the upper descending thoracic aorta. 2. Vascular congestion with mild pulmonary infiltrates most compatible with pulmonary edema.
[2016-12-18] MEDS: NOREPINEPHRIN PREMIX 250 ML IV PRN ×2 (08:02→14:27)
[2016-12-18] MEDS: ASPIRIN 325 MG TABLET PO SCH (08:08)
[2016-12-18] MEDS: CYCLOBENZAPRINE 10 MG TABLET. PO PRN ×2 (08:08→13:28)
[2016-12-18] MEDS: NICOTINE 21MG PATCH. TD SCH (08:09)
[2016-12-18] MEDS: INSULIN ASPART 300 UNITS/3 ML INSULN.PEN SQ SCH ×5 (08:36→18:02)
--- NOTE | 2016-12-18 08:50 | PDOC ---
PROGRESS NOTES Subjective Subjective feels better. slight chest pain. not short of breath. cxr shows pulmonary edema. on balloon pump.discussed with dr. soctt last night. all his by pass grafts are occluded and LVEF is 18%. poor redo CABG candidate per cardiovascular surgeon. on iv heparin and iv levophed. echo shows LVEF 20% but cardiovascular surgeon notes LVEF 10 to 15% per cardiac cath. Objective Objective Vital Signs Date Time Temp Pulse Resp B/P (MAP) Pulse Ox O2 Delivery O2 Flow Rate FiO2 12/18/16 07:40 Room Air 12/18/16 07:00 97.7 76 29 112/40 (64) 93 97.7 12/18/16 04:00 2.0 Intake and Output 12/19/16 06:59 Intake Total 0 ml Output Total 0 ml Balance 0 ml Intake Oral 0 ml Output Urine Total 0 ml Physical Exam Abdomen: Soft Heart: Regular rate, Normal S1, Normal S2 Extremities: No edema General: Alert HEENT: Atraumatic Lungs: Other (clear anteriorly) Neuro: Normal speech Psych/Mental Status: Mental status NL Skin: No rashes Assessment Assessment Problems1. Acute non-ST segment elevated myocardial infarction. severe ischemic cardiomyopathy all CABG grafts occluded acute pulmonary edema 2. Coronary artery disease with previous 3-vessel coronary bypass graft surgery in 2004. 3. Diabetes mellitus type 2, uncontrolled with microalbuminuria. 4. Hyperlipidemia. 5. Chronic obstructive pulmonary disease. 6. Peripheral arterial disease. 7. Bilateral small lung nodules. Medical Problems: (1) Non-STEMI (non-ST elevated myocardial infarction) Status: Acute Plan Plan of Care iv lasix times 1 continue iv heparin and iv levophed disposition of balloon pump per dr. scott continue aspirin increase insulin kcl now Comment Review of Relevant I have reviewed the following items robe (where applicable) has been applied. Labs Laboratory Tests Test 12/16/16 18:49 12/17/16 00:00 12/17/16 00:23 12/17/16 04:16 White Blood Count 10.1 x10^3/uL (4.0-11.0) 8.1 x10^3/uL (4.0-11.0) Red Blood Count 4.58 x10^6/uL (4.30-5.70) 4.26 x10^6/uL (4.30-5.70) Hemoglobin 13.6 g/dL (13.0-17.5) 12.7 g/dL (13.0-17.5) Hematocrit 41.2 % (39.0-53.0) 38.0 % (39.0-53.0) Mean Corpuscular Volume 90 fL (79-100) 89 fL (79-100) Mean Corpuscular Hemoglobin 30 pg (25-35) 30 pg (25-35) Mean Corpuscular Hemoglobin Concent 33 g/dL (31-37) 33 g/dL (31-37) Red Cell Distribution Width 15.3 % (11.5-14.5) 14.9 % (11.5-14.5) Platelet Count 221 x10^3/uL (140-400) 198 x10^3/uL (140-400) Neutrophils (%) (Auto) 82 % (31-73) 74 % (31-73) Lymphocytes (%) (Auto) 12 % (24-48) 18 % (24-48) Monocytes (%) (Auto) 5 % (0-9) 6 % (0-9) Eosinophils (%) (Auto) 0 % (0-3) 1 % (0-3) Basophils (%) (Auto) 0 % (0-3) 0 % (0-3) Neutrophils # (Auto) 8.3 x10^3uL (1.8-7.7) 6.1 x10^3uL (1.8-7.7) Lymphocytes # (Auto) 1.2 x10^3/uL (1.0-4.8) 1.5 x10^3/uL (1.0-4.8) Monocytes # (Auto) 0.5 x10^3/uL (0.0-1.1) 0.5 x10^3/uL (0.0-1.1) Eosinophils # (Auto) 0.0 x10^3/uL (0.0-0.7) 0.1 x10^3/uL (0.0-0.7) Basophils # (Auto) 0.0 x10^3/uL (0.0-0.2) 0.0 x10^3/uL (0.0-0.2) Prothrombin Time 12.9 SEC (11.7-14.0) Prothromb Time International Ratio 1.0 (0.8-1.1) Activated Partial Thromboplast Time 30 SEC (24-38) Sodium Level 138 mmol/L (136-145) 136 mmol/L (136-145) Potassium Level 3.6 mmol/L (3.5-5.1) 4.3 mmol/L (3.5-5.1) Chloride Level 101 mmol/L (98-107) 101 mmol/L (98-107) Carbon Dioxide Level 30 mmol/L (21-32) 30 mmol/L (21-32) Anion Gap 7 (6-14) 5 (6-14) Blood Urea Nitrogen 19 mg/dL (8-26) 22 mg/dL (8-26) Creatinine 1.2 mg/dL (0.7-1.3) 1.2 mg/dL (0.7-1.3) Estimated GFR (Cockcroft-Gault) 59.5 59.5 BUN/Creatinine Ratio 16 (6-20) Glucose Level 328 mg/dL (70-99) 401 mg/dL (70-99) Calcium Level 9.0 mg/dL (8.5-10.1) 8.7 mg/dL (8.5-10.1) Total Bilirubin 0.4 mg/dL (0.2-1.0) Aspartate Amino Transf (AST/SGOT) 96 U/L (15-37) Alanine Aminotransferase (ALT/SGPT) 27 U/L (16-63) Alkaline Phosphatase 121 U/L (46-116) Creatine Kinase 899 U/L (39-308) Creatine Kinase MB (Mass) 102.1 ng/mL (0.0-3.6) Creatine Kinase MB Relative Index 11.4 % (0-4) Troponin I Quantitative 9.612 ng/mL (0.000-0.055) 48.531 ng/mL (0.000-0.055) GJ-Aif-L-Type Natriuretic Peptide 1587 pg/mL (0-124) Total Protein 7.7 g/dL (6.4-8.2) Albumin 3.3 g/dL (3.4-5.0) Albumin/Globulin Ratio 0.8 (1.0-1.7) Nasal Screen MRSA (PCR) Negative (Negative) Glucose (Fingerstick) 317 mg/dL (70-99) Heparin Anti-Xa Act, Unfractionated < 0.10 IU/mL (0.30-0.70) Test 12/17/16 10:48 12/17/16 11:42 12/17/16 17:30 12/17/16 20:52 Troponin I Quantitative 78.435 ng/mL (0.000-0.055) Glucose (Fingerstick) 137 mg/dL (70-99) 426 mg/dL (70-99) 254 mg/dL (70-99) Test 12/18/16 05:35 White Blood Count 9.0 x10^3/uL (4.0-11.0) Red Blood Count 3.93 x10^6/uL (4.30-5.70) Hemoglobin 11.6 g/dL (13.0-17.5) Hematocrit 35.0 % (39.0-53.0) Mean Corpuscular Volume 89 fL (79-100) Mean Corpuscular Hemoglobin 30 pg (25-35) Mean Corpuscular Hemoglobin Concent 33 g/dL (31-37) Red Cell Distribution Width 14.9 % (11.5-14.5) Platelet Count 157 x10^3/uL (140-400) Neutrophils (%) (Auto) 77 % (31-73) Lymphocytes (%) (Auto) 16 % (24-48) Monocytes (%) (Auto) 5 % (0-9) Eosinophils (%) (Auto) 1 % (0-3) Basophils (%) (Auto) 0 % (0-3) Neutrophils # (Auto) 7.0 x10^3uL (1.8-7.7) Lymphocytes # (Auto) 1.5 x10^3/uL (1.0-4.8) Monocytes # (Auto) 0.5 x10^3/uL (0.0-1.1) Eosinophils # (Auto) 0.1 x10^3/uL (0.0-0.7) Basophils # (Auto) 0.0 x10^3/uL (0.0-0.2) Sodium Level 140 mmol/L (136-145) Potassium Level 3.7 mmol/L (3.5-5.1) Chloride Level 104 mmol/L (98-107) Carbon Dioxide Level 28 mmol/L (21-32) Anion Gap 8 (6-14) Blood Urea Nitrogen 25 mg/dL (8-26) Creatinine 1.1 mg/dL (0.7-1.3) Estimated GFR (Cockcroft-Gault) 65.8 Glucose Level 171 mg/dL (70-99) Calcium Level 8.5 mg/dL (8.5-10.1) Triglycerides Level 41 mg/dL (0-150) Cholesterol Level 146 mg/dL (0-200) LDL Cholesterol, Calculated 87 mg/dL (0-100) VLDL Cholesterol, Calculated 8 mg/dL (0-40) Non-HDL Cholesterol Calculated 95 mg/dL (0-129) HDL Cholesterol 51 mg/dL (40-60) Cholesterol/HDL Ratio 2.9 Laboratory Tests Test 12/17/16 10:48 12/17/16 11:42 12/17/16 17:30 12/17/16 20:52 Troponin I Quantitative 78.435 ng/mL (0.000-0.055) Glucose (Fingerstick) 137 mg/dL (70-99) 426 mg/dL (70-99) 254 mg/dL (70-99) Test 12/18/16 05:35 White Blood Count 9.0 x10^3/uL (4.0-11.0) Red Blood Count 3.93 x10^6/uL (4.30-5.70) Hemoglobin 11.6 g/dL (13.0-17.5) Hematocrit 35.0 % (39.0-53.0) Mean Corpuscular Volume 89 fL (79-100) Mean Corpuscular Hemoglobin 30 pg (25-35) Mean Corpuscular Hemoglobin Concent 33 g/dL (31-37) Red Cell Distribution Width 14.9 % (11.5-14.5) Platelet Count 157 x10^3/uL (140-400) Neutrophils (%) (Auto) 77 % (31-73) Lymphocytes (%) (Auto) 16 % (24-48) Monocytes (%) (Auto) 5 % (0-9) Eosinophils (%) (Auto) 1 % (0-3) Basophils (%) (Auto) 0 % (0-3) Neutrophils # (Auto) 7.0 x10^3uL (1.8-7.7) Lymphocytes # (Auto) 1.5 x10^3/uL (1.0-4.8) Monocytes # (Auto) 0.5 x10^3/uL (0.0-1.1) Eosinophils # (Auto) 0.1 x10^3/uL (0.0-0.7) Basophils # (Auto) 0.0 x10^3/uL (0.0-0.2) Sodium Level 140 mmol/L (136-145) Potassium Level 3.7 mmol/L (3.5-5.1) Chloride Level 104 mmol/L (98-107) Carbon Dioxide Level 28 mmol/L (21-32) Anion Gap 8 (6-14) Blood Urea Nitrogen 25 mg/dL (8-26) Creatinine 1.1 mg/dL (0.7-1.3) Estimated GFR (Cockcroft-Gault) 65.8 Glucose Level 171 mg/dL (70-99) Calcium Level 8.5 mg/dL (8.5-10.1) Triglycerides Level 41 mg/dL (0-150) Cholesterol Level 146 mg/dL (0-200) LDL Cholesterol, Calculated 87 mg/dL (0-100) VLDL Cholesterol, Calculated 8 mg/dL (0-40) Non-HDL Cholesterol Calculated 95 mg/dL (0-129) HDL Cholesterol 51 mg/dL (40-60) Cholesterol/HDL Ratio 2.9 Medications Current Medications Acetaminophen/ Hydrocodone Bitart (Lortab 5/325) 1 tab 1X ONCE PO Last administered on 12/16/16 20:01; Start 12/16/16 at 20:00; Stop 12/16/16 at 20 :01; Status DC Aspirin (Children'S Aspirin) 324 mg 1X ONCE PO Last administered on 20:53; Start 12/16/16 at 20:30; Stop 12/16/16 at 20:31; Status DC Nitroglycerin (Nitrostat) 0.4 mg PRN Q5MIN PRN SL CHEST PAIN Last administered on 12/16/16 21:18; Start 12/16/16 at 20:30 Heparin Sodium/ Dextrose 500 ml @ 0 mls/hr CONT PRN IV SEE I/O RECORD Last administered on 12/17/16 23:37; Start 12/16/16 at 21:00 Heparin Sodium (Porcine) (Heparin Sodium) 1,750 unit PRN Q6HRS PRN IV FOR UFH LEVEL LESS THAN 0.2; Start 12/16/16 at 21:00 Info (Anti-Coagulation Monitoring By Pharmacy) 1 each PRN DAILY PRN MC SEE COMMENTS Last administered on 12/17/16 09:47; Start 12/16/16 at 21:00 Fentanyl Citrate (Fentanyl 2ml Vial) 50 mcg 1X ONCE IV Last administered on 21:44; Start 12/16/16 at 21:30; Stop 12/16/16 at 21:31; Status DC Ondansetron HCl (Zofran) 4 mg 1X ONCE IV Last administered on 12/16/16 21:41 ; Start 12/16/16 at 21:30; Stop 12/16/16 at 21:31; Status DC Furosemide (Lasix) 40 mg 1X ONCE IVP Last administered on 12/16/16 21:46; Start 12/16/16 at 21:30; Stop 12/16/16 at 21:31; Status DC Nitroglycerin/ Dextrose 250 ml @ 0 mls/hr 1X ONCE IV Last administered on 21:25; Start 12/16/16 at 21:00; Stop 12/16/16 at 21:02; Status DC Heparin Sodium (Porcine) (Heparin Sodium) 4,000 unit 1X ONCE IV Last administered on 12/16/16 21:53; Start 12/16/16 at 22:00; Stop 12/16/16 at 22 :01; Status DC Ondansetron HCl (Zofran) 4 mg PRN Q8HRS PRN IV NAUSEA/VOMITING; Start at 22:30; Stop 12/17/16 at 22:29; Status DC Sodium Chloride 1,000 ml @ 75 mls/hr [id number] IV ; Start 12/16/16 at 23:00; Stop 12/16/16 at 23:00; Status DC Insulin Aspart (NovoLOG) 0-5 UNITS TIDWMEALS SQ ; Start 12/17/16 at 08:00; Stop 12/17/16 at 09:47; Status DC Dextrose (Dextrose 50%-Water Syringe) 12.5 gm PRN Q15MIN PRN IV SEE COMMENTS; Start 12/16/16 at 22:45 Dextrose/Sodium Chloride 1,000 ml @ 75 mls/hr 1X ONCE IV Last administered on 12/17/16 00:19; Start 12/16/16 at 22:45; Stop 12/17/16 at 12:04; Status DC Alprazolam (Xanax) 0.25 mg PRN Q6HRS PRN PO ANXIETY / AGITATION Last administered on 12/18/16 08:08; Start 12/17/16 at 01:00 Morphine Sulfate 3 mg PRN Q2HR PRN IV SEVERE PAIN Last administered on 09:26; Start 12/17/16 at 01:00; Stop 12/17/16 at 09:47; Status DC Sodium Chloride 1,000 ml @ 40 mls/hr Q24H IV Last administered on 12/17/16 23:38; Start 12/17/16 at 06:30 Insulin Aspart (NovoLOG) 4 units 1X ONCE SQ Last administered on 12/17/16 06 :20; Start 12/17/16 at 06:30; Stop 12/17/16 at 06:31; Status DC Insulin Detemir (Levemir) 16 units HS SQ Last administered on 12/17/16 20:55 ; Start 12/17/16 at 21:00 Influenza Virus Vaccine Quadrival (Fluarix Quad [id number] Syringe) 0.5 ml ONCE ONCE VAX IM ; Start 12/17/16 at 10:00; Stop 12/17/16 at 10:01; Status DC Insulin Aspart (NovoLOG) 0-5 UNITS TIDWMEALS SQ Last administered on 08:36; Start 12/17/16 at 12:00 Aspirin ([place] Aspirin) 325 mg DAILYWBKFT PO Last administered on 12/18/16 08 :08; Start 12/17/16 at 08:00 Midazolam HCl (Versed) 2 mg 1X ONCE IV Last administered on 12/17/16 11:23; Start 12/17/16 at 11:15; Stop 12/17/16 at 11:17; Status DC Fentanyl Citrate (Fentanyl 2ml Vial) 50 mcg PRN Q2HR PRN IV PAIN Last administered on 12/18/16 04:32; Start 12/17/16 at 11:15 Heparin Sodium/ Sodium Chloride 500 ml @ As Directed STK-MED ONCE .ROUTE ; Start 12/17/16 at 13:25; Stop 12/17/16 at 13:26; Status DC Lidocaine HCl 20 ml STK-MED ONCE .ROUTE ; Start 12/17/16 at 13:25; Stop at 13:26; Status DC Iohexol (Omnipaque 300 Mg/ml) 100 ml STK-MED ONCE .ROUTE ; Start 12/17/16 at 13 :25; Stop 12/17/16 at 13:26; Status DC Iohexol (Omnipaque 300 Mg/ml) 100 ml STK-MED ONCE .ROUTE ; Start 12/17/16 at 13 :55; Stop 12/17/16 at 13:56; Status DC Fentanyl Citrate (Fentanyl 2ml Vial) 100 mcg STK-MED ONCE .ROUTE ; Start at 13:59; Stop 12/17/16 at 14:00; Status DC Midazolam HCl (Versed) 2 mg STK-MED ONCE .ROUTE ; Start 12/17/16 at 14:00; Stop 12/17/16 at 14:01; Status DC Heparin Sodium/ Sodium Chloride 1,000 unit 1X ONCE IART Last administered on 12/17/16t 14:15; Start 12/17/16 at 14:15; Stop 12/17/16 at 14:16; Status DC Midazolam HCl (Versed) 2 mg 1X ONCE IV Last administered on 12/17/16t 14:15; Start 12/17/16 at 14:15; Stop 12/17/16 at 14:16; Status DC Fentanyl Citrate (Fentanyl 2ml Vial) 100 mcg 1X ONCE IV ; Start 12/17/16 at 14 :15; Stop 12/17/16 at 14:16; Status DC Lidocaine HCl 20 ml 1X ONCE IJ Last administered on 12/17/16t 14:15; Start 12/17/16 at 14:15; Stop 12/17/16 at 14:16; Status DC Iohexol (Omnipaque 300 Mg/ml) 100 ml 1X ONCE IART Last administered on t 14:15; Start 12/17/16 at 14:15; Stop 12/17/16 at 14:16; Status DC Info (Do NOT chart on this entry -- for MONITORING) 1 each PRN DAILY PRN MC SEE COMMENTS; Start 12/17/16 at 14:15; Stop 12/19/16 at 14:14 Heparin Sodium (Porcine) (Heparin Sodium) 10,000 unit STK-MED ONCE .ROUTE ; Start 12/17/16 at 14:18; Stop 12/17/16 at 14:19; Status DC Heparin Sodium/ Sodium Chloride 500 ml @ As Directed STK-MED ONCE .ROUTE ; Start 12/17/16 at 14:40; Stop 12/17/16 at 14:41; Status DC Albuterol Sulfate (Ventolin Neb Soln) 2.5 mg PRN Q4HRS PRN NEB SHORTNESS OF BREATH; Start 12/17/16 at 16:30 Nicotine (Nicoderm Cq 21mg) 1 patch DAILY TD Last administered on 12/18/16 08 :09; Start 12/17/16 at 17:00 Cyclobenzaprine HCl (Flexeril) 10 mg PRN Q6HRS PRN PO MUSCLE SPASMS Last administered on 12/18/16 08:08; Start 12/17/16 at 16:30 Lidocaine HCl (Lidocaine HCl 2% Abboject) 75 mg 1X ONCE IV Last administered on 12/17/16 17:06; Start 12/17/16 at 17:00; Stop 12/17/16 at 17:01; Status DC Norepinephrine Bitartrate 250 ml @ 0 mls/hr CONT PRN IV SEE I/O RECORD Last administered on 12/18/16 08:02; Start 12/17/16 at 19:15 Albumin Human 500 ml @ 125 mls/hr 1X ONCE IV Last administered on 12/17/16 19:44; Start 12/17/16 at 19:45; Stop 12/17/16 at 23:44; Status DC Active Scripts Active Reported Metformin Hcl Er (Metformin Hcl) 1,000 Mg Tab.er.24 1,000 Mg PO BID Actos (Pioglitazone Hcl) 30 Mg Tablet 30 Mg PO DAILYWBKFT Vitals/I & O Vital Sign - Last 24 Hours 12/17/16 12/17/16 12/17/16 12/17/16 09:00 09:26 10:00 11:00 Pulse 78 78 80 Resp 21 20 16 B/P (MAP) 76/45 (55) 71/22 (38) 87/57 (67) Pulse Ox 94 94 94 94 O2 Delivery Nasal Cannula Room Air Room Air Room Air O2 Flow Rate 2.0 12/17/16 12/17/16 12/17/16 12/17/16 11:23 12:00 12:00 14:15 Temp 97.7 97.7 Pulse 81 Resp 16 16 B/P (MAP) 87/51 (63) Pulse Ox 94 94 O2 Delivery Room Air Room Air Room Air 12/17/16 12/17/16 12/17/16 12/17/16 14:37 15:05 15:09 15:11 Pulse 78 84 82 Resp 16 24 16 B/P (MAP) 94/46 (62) 97/39 (58) Pulse Ox 96 96 96 O2 Delivery Room Air Room Air Room Air 12/17/16 12/17/16 12/17/16 12/17/16 15:30 16:00 16:00 16:00 Temp 98.1 98.1 Pulse 85 97 97 Resp 16 B/P (MAP) 95/35 (55) 74/36 (49) 84/37 (53) Pulse Ox 96 O2 Delivery Room Air Room Air 12/17/16 12/17/16 12/17/16 12/17/16 16:45 17:00 17:00 17:06 Pulse 97 95 96 99 Resp 18 B/P (MAP) 78/35 (49) 97/51 (66) 76/33 (47) 93/44 Pulse Ox 100 O2 Delivery Room Air 12/17/16 12/17/16 12/17/16 12/17/16 17:07 17:55 18:06 19:00 Pulse 93 96 89 Resp 18 18 B/P (MAP) 81/36 (51) 98/51 (67) 86/36 (53) Pulse Ox 96 100 96 O2 Delivery Room Air Room Air Room Air 12/17/16 12/17/16 12/17/16 12/17/16 19:45 20:00 20:00 20:00 Temp 98.2 98.2 Pulse 84 84 Resp 20 B/P (MAP) 92/44 (60) 92/44 (60) Pulse Ox 95 100 O2 Delivery Room Air Room Air Room Air 12/17/16 12/17/16 12/17/16 12/17/16 20:56 21:00 21:26 22:00 Pulse 88 81 Resp 16 16 24 B/P (MAP) 97/40 (59) 108/43 (64) Pulse Ox 95 94 97 O2 Delivery Room Air Room Air Nasal Cannula O2 Flow Rate 2.0 2.0 12/17/16 12/17/16 12/18/16 12/18/16 23:00 23:40 00:00 00:00 Temp 98.5 98.5 Pulse 78 84 84 Resp 22 19 B/P (MAP) 101/47 (65) 94/48 (63) 94/48 (63) Pulse Ox 96 96 O2 Delivery Nasal Cannula Nasal Cannula Nasal Cannula O2 Flow Rate 2.0 2.0 2.0 12/18/16 12/18/16 12/18/16 12/18/16 00:14 01:00 02:00 03:00 Pulse 77 71 70 Resp 20 18 16 B/P (MAP) 108/48 (68) 113/68 (83) 112/56 (74) 112/49 (70) Pulse Ox 94 96 95 O2 Delivery Nasal Cannula Nasal Cannula Room Air O2 Flow Rate 2.0 2.0 12/18/16 12/18/16 12/18/16 12/18/16 03:59 04:00 04:00 04:32 Temp 98.2 98.2 Pulse 75 75 Resp 16 17 B/P (MAP) 107/50 (69) 107/50 (69) Pulse Ox 96 95 O2 Delivery Room Air Nasal Cannula Room Air O2 Flow Rate 2.0 12/18/16 12/18/16 12/18/16 12/18/16 05:00 05:02 06:00 07:00 Temp 97.7 97.7 Pulse 79 79 76 Resp 24 24 26 29 B/P (MAP) 100/36 (57) 103/48 (66) 112/40 (64) Pulse Ox 94 94 93 93 O2 Delivery Room Air Room Air Room Air Room Air 12/18/16 07:40 O2 Delivery Room Air Intake and Output 12/18/16 12/18/16 12/19/16 14:59 22:59 06:59 Intake Total 0 ml Output Total 0 ml Balance 0 ml ROJAS ALICEA MD Dec 18, 2016 08:50
[2016-12-18] MEDS ORDERED: POTASSIUM CHLORIDE 20 MEQ TABLET.ER. PO ONE (09:00)
[2016-12-18] MEDS ORDERED: NICOTINE 14MG PATCH. TD SCH (09:00)
[2016-12-18] MEDS ORDERED: FUROSEMIDE 20 MG/2 ML VIAL. IVP ONE (09:00)
[2016-12-18] MEDS: ANTI-COAG MONITOR BY PHARMACY. MC PRN (10:02)
--- NOTE | 2016-12-18 14:09 | PDOC ---
PULMONARY PROGRESS NOTES Subjective on balloon pump, no cp, cough, sob is better. going to [facility] Vitals Vital Signs Date Time Temp Pulse Resp B/P (MAP) Pulse Ox O2 Delivery O2 Flow Rate FiO2 12/18/16 13:00 77 25 104/38 (60) 96 Room Air 12/18/16 11:58 98.4 98.4 12/18/16 04:00 2.0 Comments ros as mentioned as above other sys otherwise neg ROS: No Nausea General: Alert HEENT: Other (nc at perrrl nose throat clear) Lungs: Crackles Cardiovascular: S1, S2 Abdomen: Soft, Non-tender Neuro Exam: Alert, Oriented Extremities: No Edema Skin: Warm Labs Laboratory Tests Test 12/16/16 18:49 12/17/16 00:00 12/17/16 00:23 12/17/16 04:16 White Blood Count 10.1 x10^3/uL (4.0-11.0) 8.1 x10^3/uL (4.0-11.0) Red Blood Count 4.58 x10^6/uL (4.30-5.70) 4.26 x10^6/uL (4.30-5.70) Hemoglobin 13.6 g/dL (13.0-17.5) 12.7 g/dL (13.0-17.5) Hematocrit 41.2 % (39.0-53.0) 38.0 % (39.0-53.0) Mean Corpuscular Volume 90 fL (79-100) 89 fL (79-100) Mean Corpuscular Hemoglobin 30 pg (25-35) 30 pg (25-35) Mean Corpuscular Hemoglobin Concent 33 g/dL (31-37) 33 g/dL (31-37) Red Cell Distribution Width 15.3 % (11.5-14.5) 14.9 % (11.5-14.5) Platelet Count 221 x10^3/uL (140-400) 198 x10^3/uL (140-400) Neutrophils (%) (Auto) 82 % (31-73) 74 % (31-73) Lymphocytes (%) (Auto) 12 % (24-48) 18 % (24-48) Monocytes (%) (Auto) 5 % (0-9) 6 % (0-9) Eosinophils (%) (Auto) 0 % (0-3) 1 % (0-3) Basophils (%) (Auto) 0 % (0-3) 0 % (0-3) Neutrophils # (Auto) 8.3 x10^3uL (1.8-7.7) 6.1 x10^3uL (1.8-7.7) Lymphocytes # (Auto) 1.2 x10^3/uL (1.0-4.8) 1.5 x10^3/uL (1.0-4.8) Monocytes # (Auto) 0.5 x10^3/uL (0.0-1.1) 0.5 x10^3/uL (0.0-1.1) Eosinophils # (Auto) 0.0 x10^3/uL (0.0-0.7) 0.1 x10^3/uL (0.0-0.7) Basophils # (Auto) 0.0 x10^3/uL (0.0-0.2) 0.0 x10^3/uL (0.0-0.2) Prothrombin Time 12.9 SEC (11.7-14.0) Prothromb Time International Ratio 1.0 (0.8-1.1) Activated Partial Thromboplast Time 30 SEC (24-38) Sodium Level 138 mmol/L (136-145) 136 mmol/L (136-145) Potassium Level 3.6 mmol/L (3.5-5.1) 4.3 mmol/L (3.5-5.1) Chloride Level 101 mmol/L (98-107) 101 mmol/L (98-107) Carbon Dioxide Level 30 mmol/L (21-32) 30 mmol/L (21-32) Anion Gap 7 (6-14) 5 (6-14) Blood Urea Nitrogen 19 mg/dL (8-26) 22 mg/dL (8-26) Creatinine 1.2 mg/dL (0.7-1.3) 1.2 mg/dL (0.7-1.3) Estimated GFR (Cockcroft-Gault) 59.5 59.5 BUN/Creatinine Ratio 16 (6-20) Glucose Level 328 mg/dL (70-99) 401 mg/dL (70-99) Calcium Level 9.0 mg/dL (8.5-10.1) 8.7 mg/dL (8.5-10.1) Total Bilirubin 0.4 mg/dL (0.2-1.0) Aspartate Amino Transf (AST/SGOT) 96 U/L (15-37) Alanine Aminotransferase (ALT/SGPT) 27 U/L (16-63) Alkaline Phosphatase 121 U/L (46-116) Creatine Kinase 899 U/L (39-308) Creatine Kinase MB (Mass) 102.1 ng/mL (0.0-3.6) Creatine Kinase MB Relative Index 11.4 % (0-4) Troponin I Quantitative 9.612 ng/mL (0.000-0.055) 48.531 ng/mL (0.000-0.055) YC-Asa-I-Type Natriuretic Peptide 1587 pg/mL (0-124) Total Protein 7.7 g/dL (6.4-8.2) Albumin 3.3 g/dL (3.4-5.0) Albumin/Globulin Ratio 0.8 (1.0-1.7) Nasal Screen MRSA (PCR) Negative (Negative) Glucose (Fingerstick) 317 mg/dL (70-99) Heparin Anti-Xa Act, Unfractionated < 0.10 IU/mL (0.30-0.70) Test 12/17/16 10:48 12/17/16 11:42 12/17/16 17:30 12/17/16 20:52 Troponin I Quantitative 78.435 ng/mL (0.000-0.055) Glucose (Fingerstick) 137 mg/dL (70-99) 426 mg/dL (70-99) 254 mg/dL (70-99) Test 12/18/16 05:35 12/18/16 08:29 12/18/16 10:24 12/18/16 11:39 White Blood Count 9.0 x10^3/uL (4.0-11.0) Red Blood Count 3.93 x10^6/uL (4.30-5.70) Hemoglobin 11.6 g/dL (13.0-17.5) Hematocrit 35.0 % (39.0-53.0) Mean Corpuscular Volume 89 fL (79-100) Mean Corpuscular Hemoglobin 30 pg (25-35) Mean Corpuscular Hemoglobin Concent 33 g/dL (31-37) Red Cell Distribution Width 14.9 % (11.5-14.5) Platelet Count 157 x10^3/uL (140-400) Neutrophils (%) (Auto) 77 % (31-73) Lymphocytes (%) (Auto) 16 % (24-48) Monocytes (%) (Auto) 5 % (0-9) Eosinophils (%) (Auto) 1 % (0-3) Basophils (%) (Auto) 0 % (0-3) Neutrophils # (Auto) 7.0 x10^3uL (1.8-7.7) Lymphocytes # (Auto) 1.5 x10^3/uL (1.0-4.8) Monocytes # (Auto) 0.5 x10^3/uL (0.0-1.1) Eosinophils # (Auto) 0.1 x10^3/uL (0.0-0.7) Basophils # (Auto) 0.0 x10^3/uL (0.0-0.2) Sodium Level 140 mmol/L (136-145) Potassium Level 3.7 mmol/L (3.5-5.1) Chloride Level 104 mmol/L (98-107) Carbon Dioxide Level 28 mmol/L (21-32) Anion Gap 8 (6-14) Blood Urea Nitrogen 25 mg/dL (8-26) Creatinine 1.1 mg/dL (0.7-1.3) Estimated GFR (Cockcroft-Gault) 65.8 Glucose Level 171 mg/dL (70-99) Calcium Level 8.5 mg/dL (8.5-10.1) Triglycerides Level 41 mg/dL (0-150) Cholesterol Level 146 mg/dL (0-200) LDL Cholesterol, Calculated 87 mg/dL (0-100) VLDL Cholesterol, Calculated 8 mg/dL (0-40) Non-HDL Cholesterol Calculated 95 mg/dL (0-129) HDL Cholesterol 51 mg/dL (40-60) Cholesterol/HDL Ratio 2.9 Glucose (Fingerstick) 172 mg/dL (70-99) 270 mg/dL (70-99) Heparin Anti-Xa Act, Unfractionated 0.12 IU/mL (0.30-0.70) Laboratory Tests Test 12/17/16 17:30 12/17/16 20:52 12/18/16 05:35 12/18/16 08:29 Glucose (Fingerstick) 426 mg/dL (70-99) 254 mg/dL (70-99) 172 mg/dL (70-99) White Blood Count 9.0 x10^3/uL (4.0-11.0) Red Blood Count 3.93 x10^6/uL (4.30-5.70) Hemoglobin 11.6 g/dL (13.0-17.5) Hematocrit 35.0 % (39.0-53.0) Mean Corpuscular Volume 89 fL (79-100) Mean Corpuscular Hemoglobin 30 pg (25-35) Mean Corpuscular Hemoglobin Concent 33 g/dL (31-37) Red Cell Distribution Width 14.9 % (11.5-14.5) Platelet Count 157 x10^3/uL (140-400) Neutrophils (%) (Auto) 77 % (31-73) Lymphocytes (%) (Auto) 16 % (24-48) Monocytes (%) (Auto) 5 % (0-9) Eosinophils (%) (Auto) 1 % (0-3) Basophils (%) (Auto) 0 % (0-3) Neutrophils # (Auto) 7.0 x10^3uL (1.8-7.7) Lymphocytes # (Auto) 1.5 x10^3/uL (1.0-4.8) Monocytes # (Auto) 0.5 x10^3/uL (0.0-1.1) Eosinophils # (Auto) 0.1 x10^3/uL (0.0-0.7) Basophils # (Auto) 0.0 x10^3/uL (0.0-0.2) Sodium Level 140 mmol/L (136-145) Potassium Level 3.7 mmol/L (3.5-5.1) Chloride Level 104 mmol/L (98-107) Carbon Dioxide Level 28 mmol/L (21-32) Anion Gap 8 (6-14) Blood Urea Nitrogen 25 mg/dL (8-26) Creatinine 1.1 mg/dL (0.7-1.3) Estimated GFR (Cockcroft-Gault) 65.8 Glucose Level 171 mg/dL (70-99) Calcium Level 8.5 mg/dL (8.5-10.1) Triglycerides Level 41 mg/dL (0-150) Cholesterol Level 146 mg/dL (0-200) LDL Cholesterol, Calculated 87 mg/dL (0-100) VLDL Cholesterol, Calculated 8 mg/dL (0-40) Non-HDL Cholesterol Calculated 95 mg/dL (0-129) HDL Cholesterol 51 mg/dL (40-60) Cholesterol/HDL Ratio 2.9 Test 12/18/16 10:24 12/18/16 11:39 Heparin Anti-Xa Act, Unfractionated 0.12 IU/mL (0.30-0.70) Glucose (Fingerstick) 270 mg/dL (70-99) Medications Active Scripts Medications Dose Route/Sig Max Daily Dose Days Date Category Metformin Hcl Er (Metformin Hcl) 1,000 Mg Tab.er.24 1,000 Mg PO BID 06/14/13 Reported Actos (Pioglitazone Hcl) 30 Mg Tablet 30 Mg PO [id number] 06/14/13 Reported Impression . IMPRESSION: 1. Acute respiratory failure, resolved 2. Non-ST segment elevation myocardial infarction. 3. Chronic obstructive pulmonary disease. 4. Coronary artery disease with previous coronary artery bypass grafting. 5. Ischemic cardiomyopathy, ejection fraction 20%. 6. Abnormal CT of the chest revealing pulmonary nodules. Plan . PLAN: 1. on balloon pump 2. Continue oxygen supplementation. 3. Nebulized treatments. 4. No need for antibiotics. 5. No need for steroids. 6. Repeat CT of the chest as an outpatient. discussed w pt ANA Alvarado MD Dec 18, 2016 14:09
--- NOTE | 2016-12-18 17:15 | PDOC ---
PROGRESS NOTES Subjective Subjective No chest pains. Patient on Levophed drip, heparin drip, and a normally functioning intra-aortic balloon pump. Objective Objective Vital Signs Date Time Temp Pulse Resp B/P (MAP) Pulse Ox O2 Delivery O2 Flow Rate FiO2 12/18/16 16:59 29 96 Room Air 12/18/16 16:00 98.3 73 107/43 (64) 98.3 12/18/16 04:00 2.0 Intake and Output 12/19/16 07:00 Intake Total 920 ml Output Total 1100 ml Balance -180 ml Intake Oral 920 ml Output Urine Total 1100 ml Physical Exam Physical Exam No significant changes in cardiac exam Assessment Assessment The patient is being transferred with the intra-aortic balloon pump catheter and his current drips to [facility] by ambulance. I have given report to the admitting physician as well as the receiving casino runner. I have also talked to the transfer team in [facility]. Problems Medical Problems: (1) Non-STEMI (non-ST elevated myocardial infarction) Status: Acute Comment Review of Relevant I have reviewed the following items robe (where applicable) has been applied. Labs Laboratory Tests Test 12/16/16 18:49 12/17/16 00:00 12/17/16 00:23 12/17/16 04:16 White Blood Count 10.1 x10^3/uL (4.0-11.0) 8.1 x10^3/uL (4.0-11.0) Red Blood Count 4.58 x10^6/uL (4.30-5.70) 4.26 x10^6/uL (4.30-5.70) Hemoglobin 13.6 g/dL (13.0-17.5) 12.7 g/dL (13.0-17.5) Hematocrit 41.2 % (39.0-53.0) 38.0 % (39.0-53.0) Mean Corpuscular Volume 90 fL (79-100) 89 fL (79-100) Mean Corpuscular Hemoglobin 30 pg (25-35) 30 pg (25-35) Mean Corpuscular Hemoglobin Concent 33 g/dL (31-37) 33 g/dL (31-37) Red Cell Distribution Width 15.3 % (11.5-14.5) 14.9 % (11.5-14.5) Platelet Count 221 x10^3/uL (140-400) 198 x10^3/uL (140-400) Neutrophils (%) (Auto) 82 % (31-73) 74 % (31-73) Lymphocytes (%) (Auto) 12 % (24-48) 18 % (24-48) Monocytes (%) (Auto) 5 % (0-9) 6 % (0-9) Eosinophils (%) (Auto) 0 % (0-3) 1 % (0-3) Basophils (%) (Auto) 0 % (0-3) 0 % (0-3) Neutrophils # (Auto) 8.3 x10^3uL (1.8-7.7) 6.1 x10^3uL (1.8-7.7) Lymphocytes # (Auto) 1.2 x10^3/uL (1.0-4.8) 1.5 x10^3/uL (1.0-4.8) Monocytes # (Auto) 0.5 x10^3/uL (0.0-1.1) 0.5 x10^3/uL (0.0-1.1) Eosinophils # (Auto) 0.0 x10^3/uL (0.0-0.7) 0.1 x10^3/uL (0.0-0.7) Basophils # (Auto) 0.0 x10^3/uL (0.0-0.2) 0.0 x10^3/uL (0.0-0.2) Prothrombin Time 12.9 SEC (11.7-14.0) Prothromb Time International Ratio 1.0 (0.8-1.1) Activated Partial Thromboplast Time 30 SEC (24-38) Sodium Level 138 mmol/L (136-145) 136 mmol/L (136-145) Potassium Level 3.6 mmol/L (3.5-5.1) 4.3 mmol/L (3.5-5.1) Chloride Level 101 mmol/L (98-107) 101 mmol/L (98-107) Carbon Dioxide Level 30 mmol/L (21-32) 30 mmol/L (21-32) Anion Gap 7 (6-14) 5 (6-14) Blood Urea Nitrogen 19 mg/dL (8-26) 22 mg/dL (8-26) Creatinine 1.2 mg/dL (0.7-1.3) 1.2 mg/dL (0.7-1.3) Estimated GFR (Cockcroft-Gault) 59.5 59.5 BUN/Creatinine Ratio 16 (6-20) Glucose Level 328 mg/dL (70-99) 401 mg/dL (70-99) Calcium Level 9.0 mg/dL (8.5-10.1) 8.7 mg/dL (8.5-10.1) Total Bilirubin 0.4 mg/dL (0.2-1.0) Aspartate Amino Transf (AST/SGOT) 96 U/L (15-37) Alanine Aminotransferase (ALT/SGPT) 27 U/L (16-63) Alkaline Phosphatase 121 U/L (46-116) Creatine Kinase 899 U/L (39-308) Creatine Kinase MB (Mass) 102.1 ng/mL (0.0-3.6) Creatine Kinase MB Relative Index 11.4 % (0-4) Troponin I Quantitative 9.612 ng/mL (0.000-0.055) 48.531 ng/mL (0.000-0.055) DX-Tba-O-Type Natriuretic Peptide 1587 pg/mL (0-124) Total Protein 7.7 g/dL (6.4-8.2) Albumin 3.3 g/dL (3.4-5.0) Albumin/Globulin Ratio 0.8 (1.0-1.7) Nasal Screen MRSA (PCR) Negative (Negative) Glucose (Fingerstick) 317 mg/dL (70-99) Heparin Anti-Xa Act, Unfractionated < 0.10 IU/mL (0.30-0.70) Test 12/17/16 10:48 12/17/16 11:42 12/17/16 17:30 12/17/16 20:52 Troponin I Quantitative 78.435 ng/mL (0.000-0.055) Glucose (Fingerstick) 137 mg/dL (70-99) 426 mg/dL (70-99) 254 mg/dL (70-99) Test 12/18/16 05:35 12/18/16 08:29 12/18/16 10:24 12/18/16 11:39 White Blood Count 9.0 x10^3/uL (4.0-11.0) Red Blood Count 3.93 x10^6/uL (4.30-5.70) Hemoglobin 11.6 g/dL (13.0-17.5) Hematocrit 35.0 % (39.0-53.0) Mean Corpuscular Volume 89 fL (79-100) Mean Corpuscular Hemoglobin 30 pg (25-35) Mean Corpuscular Hemoglobin Concent 33 g/dL (31-37) Red Cell Distribution Width 14.9 % (11.5-14.5) Platelet Count 157 x10^3/uL (140-400) Neutrophils (%) (Auto) 77 % (31-73) Lymphocytes (%) (Auto) 16 % (24-48) Monocytes (%) (Auto) 5 % (0-9) Eosinophils (%) (Auto) 1 % (0-3) Basophils (%) (Auto) 0 % (0-3) Neutrophils # (Auto) 7.0 x10^3uL (1.8-7.7) Lymphocytes # (Auto) 1.5 x10^3/uL (1.0-4.8) Monocytes # (Auto) 0.5 x10^3/uL (0.0-1.1) Eosinophils # (Auto) 0.1 x10^3/uL (0.0-0.7) Basophils # (Auto) 0.0 x10^3/uL (0.0-0.2) Sodium Level 140 mmol/L (136-145) Potassium Level 3.7 mmol/L (3.5-5.1) Chloride Level 104 mmol/L (98-107) Carbon Dioxide Level 28 mmol/L (21-32) Anion Gap 8 (6-14) Blood Urea Nitrogen 25 mg/dL (8-26) Creatinine 1.1 mg/dL (0.7-1.3) Estimated GFR (Cockcroft-Gault) 65.8 Glucose Level 171 mg/dL (70-99) Hemoglobin A1c 9.3 % (4.8-5.6) Calcium Level 8.5 mg/dL (8.5-10.1) Triglycerides Level 41 mg/dL (0-150) Cholesterol Level 146 mg/dL (0-200) LDL Cholesterol, Calculated 87 mg/dL (0-100) VLDL Cholesterol, Calculated 8 mg/dL (0-40) Non-HDL Cholesterol Calculated 95 mg/dL (0-129) HDL Cholesterol 51 mg/dL (40-60) Cholesterol/HDL Ratio 2.9 Glucose (Fingerstick) 172 mg/dL (70-99) 270 mg/dL (70-99) Heparin Anti-Xa Act, Unfractionated 0.12 IU/mL (0.30-0.70) Test 12/18/16 17:03 Glucose (Fingerstick) 160 mg/dL (70-99) Laboratory Tests Test 12/17/16 17:30 12/17/16 20:52 12/18/16 05:35 12/18/16 08:29 Glucose (Fingerstick) 426 mg/dL (70-99) 254 mg/dL (70-99) 172 mg/dL (70-99) White Blood Count 9.0 x10^3/uL (4.0-11.0) Red Blood Count 3.93 x10^6/uL (4.30-5.70) Hemoglobin 11.6 g/dL (13.0-17.5) Hematocrit 35.0 % (39.0-53.0) Mean Corpuscular Volume 89 fL (79-100) Mean Corpuscular Hemoglobin 30 pg (25-35) Mean Corpuscular Hemoglobin Concent 33 g/dL (31-37) Red Cell Distribution Width 14.9 % (11.5-14.5) Platelet Count 157 x10^3/uL (140-400) Neutrophils (%) (Auto) 77 % (31-73) Lymphocytes (%) (Auto) 16 % (24-48) Monocytes (%) (Auto) 5 % (0-9) Eosinophils (%) (Auto) 1 % (0-3) Basophils (%) (Auto) 0 % (0-3) Neutrophils # (Auto) 7.0 x10^3uL (1.8-7.7) Lymphocytes # (Auto) 1.5 x10^3/uL (1.0-4.8) Monocytes # (Auto) 0.5 x10^3/uL (0.0-1.1) Eosinophils # (Auto) 0.1 x10^3/uL (0.0-0.7) Basophils # (Auto) 0.0 x10^3/uL (0.0-0.2) Sodium Level 140 mmol/L (136-145) Potassium Level 3.7 mmol/L (3.5-5.1) Chloride Level 104 mmol/L (98-107) Carbon Dioxide Level 28 mmol/L (21-32) Anion Gap 8 (6-14) Blood Urea Nitrogen 25 mg/dL (8-26) Creatinine 1.1 mg/dL (0.7-1.3) Estimated GFR (Cockcroft-Gault) 65.8 Glucose Level 171 mg/dL (70-99) Hemoglobin A1c 9.3 % (4.8-5.6) Calcium Level 8.5 mg/dL (8.5-10.1) Triglycerides Level 41 mg/dL (0-150) Cholesterol Level 146 mg/dL (0-200) LDL Cholesterol, Calculated 87 mg/dL (0-100) VLDL Cholesterol, Calculated 8 mg/dL (0-40) Non-HDL Cholesterol Calculated 95 mg/dL (0-129) HDL Cholesterol 51 mg/dL (40-60) Cholesterol/HDL Ratio 2.9 Test 12/18/16 10:24 12/18/16 11:39 12/18/16 17:03 Heparin Anti-Xa Act, Unfractionated 0.12 IU/mL (0.30-0.70) Glucose (Fingerstick) 270 mg/dL (70-99) 160 mg/dL (70-99) Medications Current Medications Acetaminophen/ Hydrocodone Bitart (Lortab 5/325) 1 tab 1X ONCE PO Last administered on 12/16/16 20:01; Start 12/16/16 at 20:00; Stop 12/16/16 at 20 :01; Status DC Aspirin (Children'S Aspirin) 324 mg 1X ONCE PO Last administered on 20:53; Start 12/16/16 at 20:30; Stop 12/16/16 at 20:31; Status DC Nitroglycerin (Nitrostat) 0.4 mg PRN Q5MIN PRN SL CHEST PAIN Last administered on 12/16/16 21:18; Start 12/16/16 at 20:30 Heparin Sodium/ Dextrose 500 ml @ 0 mls/hr CONT PRN IV SEE I/O RECORD Last administered on 12/17/16 23:37; Start 12/16/16 at 21:00 Heparin Sodium (Porcine) (Heparin Sodium) 1,750 unit PRN Q6HRS PRN IV FOR UFH LEVEL LESS THAN 0.2; Start 12/16/16 at 21:00 Info (Anti-Coagulation Monitoring By Pharmacy) 1 each PRN DAILY PRN MC SEE COMMENTS Last administered on 12/18/16 10:02; Start 12/16/16 at 21:00 Fentanyl Citrate (Fentanyl 2ml Vial) 50 mcg 1X ONCE IV Last administered on 21:44; Start 12/16/16 at 21:30; Stop 12/16/16 at 21:31; Status DC Ondansetron HCl (Zofran) 4 mg 1X ONCE IV Last administered on 12/16/16 21:41 ; Start 12/16/16 at 21:30; Stop 12/16/16 at 21:31; Status DC Furosemide (Lasix) 40 mg 1X ONCE IVP Last administered on 12/16/16 21:46; Start 12/16/16 at 21:30; Stop 12/16/16 at 21:31; Status DC Nitroglycerin/ Dextrose 250 ml @ 0 mls/hr 1X ONCE IV Last administered on 21:25; Start 12/16/16 at 21:00; Stop 12/16/16 at 21:02; Status DC Heparin Sodium (Porcine) (Heparin Sodium) 4,000 unit 1X ONCE IV Last administered on 12/16/16 21:53; Start 12/16/16 at 22:00; Stop 12/16/16 at 22 :01; Status DC Ondansetron HCl (Zofran) 4 mg PRN Q8HRS PRN IV NAUSEA/VOMITING; Start at 22:30; Stop 12/17/16 at 22:29; Status DC Sodium Chloride 1,000 ml @ 75 mls/hr [id number] IV ; Start 12/16/16 at 23:00; Stop 12/16/16 at 23:00; Status DC Insulin Aspart (NovoLOG) 0-5 UNITS TIDWMEALS SQ ; Start 12/17/16 at 08:00; Stop 12/17/16 at 09:47; Status DC Dextrose (Dextrose 50%-Water Syringe) 12.5 gm PRN Q15MIN PRN IV SEE COMMENTS; Start 12/16/16 at 22:45 Dextrose/Sodium Chloride 1,000 ml @ 75 mls/hr 1X ONCE IV Last administered on 12/17/16 00:19; Start 12/16/16 at 22:45; Stop 12/17/16 at 12:04; Status DC Alprazolam (Xanax) 0.25 mg PRN Q6HRS PRN PO ANXIETY / AGITATION Last administered on 12/18/16 13:28; Start 12/17/16 at 01:00 Morphine Sulfate 3 mg PRN Q2HR PRN IV SEVERE PAIN Last administered on 09:26; Start 12/17/16 at 01:00; Stop 12/17/16 at 09:47; Status DC Sodium Chloride 1,000 ml @ 40 mls/hr Q24H IV Last administered on 12/17/16 23:38; Start 12/17/16 at 06:30; Stop 12/18/16 at 08:42; Status DC Insulin Aspart (NovoLOG) 4 units 1X ONCE SQ Last administered on 12/17/16 06 :20; Start 12/17/16 at 06:30; Stop 12/17/16 at 06:31; Status DC Insulin Detemir (Levemir) 16 units HS SQ Last administered on 12/17/16 20:55 ; Start 12/17/16 at 21:00; Stop 12/18/16 at 08:42; Status DC Influenza Virus Vaccine Quadrival (Fluarix Quad [id number] Syringe) 0.5 ml ONCE ONCE VAX IM Last administered on 12/18/16 14:38; Start 12/17/16 at 10:00; Stop 12/17/16 at 10:01; Status DC Insulin Aspart (NovoLOG) 0-5 UNITS TIDWMEALS SQ Last administered on 08:36; Start 12/17/16 at 12:00; Stop 12/18/16 at 08:42; Status DC Aspirin ([place] Aspirin) 325 mg DAILYWBKFT PO Last administered on 12/18/16 08 :08; Start 12/17/16 at 08:00 Midazolam HCl (Versed) 2 mg 1X ONCE IV Last administered on 12/17/16 11:23; Start 12/17/16 at 11:15; Stop 12/17/16 at 11:17; Status DC Fentanyl Citrate (Fentanyl 2ml Vial) 50 mcg PRN Q2HR PRN IV PAIN Last administered on 12/18/16 16:59; Start 12/17/16 at 11:15 Heparin Sodium/ Sodium Chloride 500 ml @ As Directed STK-MED ONCE .ROUTE ; Start 12/17/16 at 13:25; Stop 12/17/16 at 13:26; Status DC Lidocaine HCl 20 ml STK-MED ONCE .ROUTE ; Start 12/17/16 at 13:25; Stop at 13:26; Status DC Iohexol (Omnipaque 300 Mg/ml) 100 ml STK-MED ONCE .ROUTE ; Start 12/17/16 at 13 :25; Stop 12/17/16 at 13:26; Status DC Iohexol (Omnipaque 300 Mg/ml) 100 ml STK-MED ONCE .ROUTE ; Start 12/17/16 at 13 :55; Stop 12/17/16 at 13:56; Status DC Fentanyl Citrate (Fentanyl 2ml Vial) 100 mcg STK-MED ONCE .ROUTE ; Start at 13:59; Stop 12/17/16 at 14:00; Status DC Midazolam HCl (Versed) 2 mg STK-MED ONCE .ROUTE ; Start 12/17/16 at 14:00; Stop 12/17/16 at 14:01; Status DC Heparin Sodium/ Sodium Chloride 1,000 unit 1X ONCE IART Last administered on 12/17/16 14:15; Start 12/17/16 at 14:15; Stop 12/17/16 at 14:16; Status DC Midazolam HCl (Versed) 2 mg 1X ONCE IV Last administered on 12/17/16 14:15; Start 12/17/16 at 14:15; Stop 12/17/16 at 14:16; Status DC Fentanyl Citrate (Fentanyl 2ml Vial) 100 mcg 1X ONCE IV ; Start 12/17/16 at 14 :15; Stop 12/17/16 at 14:16; Status DC Lidocaine HCl 20 ml 1X ONCE IJ Last administered on 12/17/16 14:15; Start 12/17/16 at 14:15; Stop 12/17/16 at 14:16; Status DC Iohexol (Omnipaque 300 Mg/ml) 100 ml 1X ONCE IART Last administered on 14:15; Start 12/17/16 at 14:15; Stop 12/17/16 at 14:16; Status DC Info (Do NOT chart on this entry -- for MONITORING) 1 each PRN DAILY PRN MC SEE COMMENTS; Start 12/17/16 at 14:15; Stop 12/19/16 at 14:14 Heparin Sodium (Porcine) (Heparin Sodium) 10,000 unit STK-MED ONCE .ROUTE ; Start 12/17/16 at 14:18; Stop 12/17/16 at 14:19; Status DC Heparin Sodium/ Sodium Chloride 500 ml @ As Directed STK-MED ONCE .ROUTE ; Start 12/17/16 at 14:40; Stop 12/17/16 at 14:41; Status DC Albuterol Sulfate (Ventolin Neb Soln) 2.5 mg PRN Q4HRS PRN NEB SHORTNESS OF BREATH; Start 12/17/16 at 16:30 Nicotine (Nicoderm Cq 21mg) 1 patch DAILY TD Last administered on 12/18/16 08 :09; Start 12/17/16 at 17:00; Stop 12/18/16 at 08:47; Status DC Cyclobenzaprine HCl (Flexeril) 10 mg PRN Q6HRS PRN PO MUSCLE SPASMS Last administered on 12/18/16 13:28; Start 12/17/16 at 16:30 Lidocaine HCl (Lidocaine HCl 2% Abboject) 75 mg 1X ONCE IV Last administered on 12/17/16 17:06; Start 12/17/16 at 17:00; Stop 12/17/16 at 17:01; Status DC Norepinephrine Bitartrate 250 ml @ 0 mls/hr CONT PRN IV SEE I/O RECORD Last administered on 12/18/16 14:27; Start 12/17/16 at 19:15 Albumin Human 500 ml @ 125 mls/hr 1X ONCE IV Last administered on 12/17/16 19:44; Start 12/17/16 at 19:45; Stop 12/17/16 at 23:44; Status DC Insulin Aspart (NovoLOG) 0-6 UNITS TIDWMEALS SQ Last administered on 11:45; Start 12/18/16 at 12:00 Insulin Detemir (Levemir) 20 units HS SQ ; Start 12/18/16 at 21:00 Nicotine (Nicoderm Cq 14mg) 1 patch DAILY TD ; Start 12/18/16 at 09:00 Insulin Aspart (NovoLOG) 4 units TIDAC SQ Last administered on 12/18/16 11:44 ; Start 12/18/16 at 11:30 Furosemide (Lasix) 20 mg 1X ONCE IVP Last administered on 12/18/16 09:58; Start 12/18/16 at 09:00; Stop 12/18/16 at 09:01; Status DC Potassium Chloride (Klor-Con) 40 meq 1X ONCE PO Last administered on 09:57; Start 12/18/16 at 09:00; Stop 12/18/16 at 09:01; Status DC Active Scripts Active Reported Metformin Hcl Er (Metformin Hcl) 1,000 Mg Tab.er.24 1,000 Mg PO BID Actos (Pioglitazone Hcl) 30 Mg Tablet 30 Mg PO DAILYWBKFT Vitals/I & O Vital Sign - Last 24 Hours 12/17/16 12/17/16 12/17/16 12/17/16 17:55 18:06 19:00 19:45 Pulse 93 96 89 Resp 18 18 B/P (MAP) 81/36 (51) 98/51 (67) 86/36 (53) Pulse Ox 100 96 95 O2 Delivery Room Air Room Air Room Air 12/17/16 12/17/16 12/17/16 12/17/16 20:00 20:00 20:00 20:56 Temp 98.2 98.2 Pulse 84 84 Resp 20 16 B/P (MAP) 92/44 (60) 92/44 (60) Pulse Ox 100 95 O2 Delivery Room Air Room Air Room Air 12/17/16 12/17/16 12/17/16 12/17/16 21:00 21:26 22:00 23:00 Pulse 88 81 78 Resp 16 24 22 B/P (MAP) 97/40 (59) 108/43 (64) 101/47 (65) Pulse Ox 94 97 96 O2 Delivery Room Air Nasal Cannula Nasal Cannula O2 Flow Rate 2.0 2.0 2.0 12/17/16 12/18/16 12/18/16 12/18/16 23:40 00:00 00:00 00:14 Temp 98.5 98.5 Pulse 84 84 Resp 19 B/P (MAP) 94/48 (63) 94/48 (63) 108/48 (68) Pulse Ox 96 O2 Delivery Nasal Cannula Nasal Cannula O2 Flow Rate 2.0 2.0 12/18/16 12/18/16 12/18/16 12/18/16 01:00 02:00 03:00 03:59 Pulse 77 71 70 Resp 20 18 16 B/P (MAP) 113/68 (83) 112/56 (74) 112/49 (70) Pulse Ox 94 96 95 O2 Delivery Nasal Cannula Nasal Cannula Room Air Room Air O2 Flow Rate 2.0 2.0 12/18/16 12/18/16 12/18/16 12/18/16 04:00 04:00 04:32 05:00 Temp 98.2 98.2 Pulse 75 75 79 Resp 16 17 24 B/P (MAP) 107/50 (69) 107/50 (69) 100/36 (57) Pulse Ox 96 95 94 O2 Delivery Nasal Cannula Room Air Room Air O2 Flow Rate 2.0 12/18/16 12/18/16 12/18/16 12/18/16 05:02 06:00 07:00 07:40 Temp 97.7 97.7 Pulse 79 76 Resp 24 26 29 B/P (MAP) 103/48 (66) 112/40 (64) Pulse Ox 93 93 O2 Delivery Room Air Room Air Room Air 12/18/16 12/18/16 12/18/16 12/18/16 08:00 08:00 09:00 09:50 Pulse 76 82 Resp 21 28 23 B/P (MAP) 112/55 (74) 124/21 (55) 112/44 (66) Pulse Ox 96 96 93 O2 Delivery Room Air Room Air Room Air 12/18/16 12/18/16 12/18/16 12/18/16 10:00 10:20 11:00 11:54 Pulse 75 86 Resp 27 B/P (MAP) 111/37 (61) 122/50 (74) Pulse Ox 93 93 90 O2 Delivery Room Air Room Air Room Air Room Air 12/18/16 12/18/16 12/18/16/13/17 11:58 12:00 13:00 13:00 Temp 98.4 98.4 Pulse 77 73 76 77 Resp 18 20 25 B/P (MAP) 110/54 (72) 108/46 (66) 112/39 (63) 104/38 (60) Pulse Ox 95 97 96 O2 Delivery Room Air Room Air Room Air 12/18/16 12/18/16 12/18/16 12/18/16 14:05 15:03 16:00 16:00 Pulse 73 71 Resp 30 24 B/P (MAP) 106/42 (63) 113/41 (65) 118/49 (72) Pulse Ox 97 96 O2 Delivery Room Air Room Air Room Air 12/18/16 12/18/16 16:00 16:59 Temp 98.3 98.3 Pulse 73 Resp 20 29 B/P (MAP) 107/43 (64) Pulse Ox 96 96 O2 Delivery Room Air Room Air Intake and Output 12/18/16 12/18/16 12/19/16 15:00 23:00 07:00 Intake Total 820 ml 100 ml Output Total 800 ml 300 ml Balance 20 ml -200 ml JANINA PATEL MD Dec 18, 2016 17:15
[2016-12-18] MEDS ORDERED: INSULIN DETEMIR 300 UNITS/3 ML INSULN.PEN. SQ SCH (21:00)
--- NOTE | 2016-12-19 09:46 | PDOC ---
Provider Note Provider Note discharge summary dictated # [id number] ROJAS ALICEA MD Dec 19, 2016 09:46
--- NOTE | 2016-12-19 10:29 | DS ---
DATE OF DISCHARGE: 12/18/2016 CONSULTANTS: Include Dr. Stein, Dr. Arizmendi and Dr. Retana. PROCEDURES: Placement of intra-abdominal aortic balloon pump and a cardiac catheterization. FINAL DIAGNOSES: 1. Acute non-ST segment elevated myocardial infarction. 2. Severe ischemic cardiomyopathy. 3. Acute systolic congestive heart failure/acute pulmonary edema. 4. 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 5. Coronary artery disease with a history of coronary artery bypass graft surgery in 2004. 6. Diabetes mellitus type 2, uncontrolled with microalbuminuria. 7. Hyperlipidemia. 8. Chronic obstructive pulmonary disease. 9. Peripheral arterial disease. 10. Bilateral small lung pulmonary nodules. 11. Severe ischemic cardiomyopathy. HOSPITAL COURSE: The patient is a 71-year-old white male with a history of coronary artery bypass graft surgery with three-vessel coronary artery bypass graft surgery in 2004, COPD, hyperlipidemia, diabetes mellitus type 2 with microalbuminuria with osteoarthritis and previous right total knee arthroplasty, admitted to [facility]'s Intensive Care Unit through the Emergency Room on 12/17/2016 with a 1-week history of chest pain and shortness of breath. He had retrosternal chest pain radiating to his neck with shortness of breath intermittently, but on a regular basis over the last few days prior to admission and sought help at the [facility] Emergency Room. His troponin level peaked at 45. His cardiac enzymes were elevated. EKG did not show any acute Q-wave changes and he was diagnosed with acute non-ST segment elevated myocardial infarction. He was treated with IV Levophed and IV heparin and underwent a cardiac catheterization, which showed that his left ventricular ejection fraction was only 18% and he had occlusion of all of his previous coronary artery bypass graft surgery grafts and he was placed on an intra-aortic balloon pump and his IV heparin and IV nitroglycerin were continued. He also had acute pulmonary edema, treated with IV Lasix. He was seen by Dr. Stein in consultation for Cardiology, Dr. Arizmendi for Pulmonary and Dr. Retana for Cardiovascular Surgery. Dr. Stein spoke with the physicians at [facility] and the patient was transferred with his intra-aortic balloon pump and IV Levophed and IV heparin drips to [facility]. He was transferred to [facility] on 12/18/2016, and Dr. Stein spoke with the school secretary and the accepting physician at the other facility. ROJAS ALICEA MD DR: POPPY/nela JOB#: [id number] / [id number]
== END 2016-12-18 19:40 | DRG 270 ==
LOC: ER 18:30 → 1 WEST ICU 22:00
PROVIDERS: ADMIT Internal Medicine; ATTEND Internal Medicine
PROC: 4A023N7 Measurement of Cardiac Sampling and Pressure, Left Heart, Percutaneous Approach (ICD-10-PCS; principal; 2016-12-17)
PROC: 5A02210 Assistance with Cardiac Output using Balloon Pump, Continuous (ICD-10-PCS; 2016-12-17)
PROC: B2111ZZ Fluoroscopy of Multiple Coronary Arteries using Low Osmolar Contrast (ICD-10-PCS; 2016-12-17)
PROC: B2151ZZ Fluoroscopy of Left Heart using Low Osmolar Contrast (ICD-10-PCS; 2016-12-17)
PROC: B2121ZZ Fluoroscopy of Single Coronary Artery Bypass Graft using Low Osmolar Contrast (ICD-10-PCS; 2016-12-17)
PROC: B2131ZZ Fluoroscopy of Multiple Coronary Artery Bypass Grafts using Low Osmolar Contrast (ICD-10-PCS; 2016-12-17)
DX: T82.858A Stenosis of other vascular prosthetic devices, implants and grafts, initial encounter (principal); I21.4 Non-ST elevation (NSTEMI) myocardial infarction; J96.00 Acute respiratory failure, unspecified whether with hypoxia or hypercapnia; J81.0 Acute pulmonary edema; I50.21 Acute systolic (congestive) heart failure; J44.1 Chronic obstructive pulmonary disease with (acute) exacerbation; I11.0 Hypertensive heart disease with heart failure; I25.5 Ischemic cardiomyopathy; E11.65 Type 2 diabetes mellitus with hyperglycemia; E78.00 Pure hypercholesterolemia, unspecified; E78.5 Hyperlipidemia, unspecified; F17.200 Nicotine dependence, unspecified, uncomplicated; G89.29 Other chronic pain; I25.10 Atherosclerotic heart disease of native coronary artery without angina pectoris; E11.51 Type 2 diabetes mellitus with diabetic peripheral angiopathy without gangrene; K21.9 Gastro-esophageal reflux disease without esophagitis; N40.0 Benign prostatic hyperplasia without lower urinary tract symptoms; Z79.4 Long term (current) use of insulin; Z79.82 Long term (current) use of aspirin; Z79.899 Other long term (current) drug therapy; Z87.81 Personal history of (healed) traumatic fracture; Z91.19 Patient's noncompliance with other medical treatment and regimen; Z95.1 Presence of aortocoronary bypass graft; Z96.651 Presence of right artificial knee joint; Z91.09 Other allergy status, other than to drugs and biological substances
CPT/HCPCS: 33967; 36415; 71010; 80048; 80053; 80061; 82553; 82962; 83036; 83880; 84484; 85025; 85520; 85610; 85730; 87641; 90686; 93005; 93306; 93459; 93567; 94250; 96365; 96366; 96375; 99152; 99153; C1769; C1892; J1644; J1815; J1940; J2250; J2270; J2405; J3010; J3490; J7030; P9045; Q9967; 99285-25; J2001